=== PATIENT | female | born 1935 | race Caucasian/White ===

== ENCOUNTER 2017-07-02 16:17 | Emergency (ER) | payer MEDICARE, OTHER ==
--- NOTE | 2017-07-02 16:55 | ER Document Report ---
ED Medical Screen (RME) - General Chief Complaint: Weakness Stated Complaint: WEAKNESS Time Seen by Provider: 07/02/17 16:52 Mode of Arrival: Ambulatory Information source: Patient Notes: Patient states that she is felt confused intermittently since yesterday. However patient is alert and oriented 4 and answers all questions appropriately. Patient does take chronic pain medication and according to her sometimes accidentally takes more than she is supposed to. Patient denies any abdominal pain. No nausea vomiting or diarrhea. No cough cold or congestion. TRAVEL OUTSIDE OF THE [place] IN LAST 30 DAYS: No - Related Data Allergies/Adverse Reactions: IVP dye Allergy (Uncoded 07/02/17 16:20) Past Medical History - Social History Chew tobacco use (# tins/day): No Frequency of alcohol use: None Drug Abuse: None - Past Medical History Cardiac Medical History: Reports: Hx Hypertension Endocrine Medical History: Reports: Hx Diabetes Mellitus Type 2 Renal/ Medical History: Denies: Hx Peritoneal Dialysis Musculoskeltal Medical History: Reports Hx Arthritis Past Surgical History: Reports: Hx Appendectomy, Hx Hysterectomy, Hx Orthopedic Surgery - Right knee replaced, spinal fusion, Hx Tonsillectomy - Immunizations Hx Diphtheria, Pertussis, Tetanus Vaccination: Yes Physical Exam - Vital signs Vitals: Temp Pulse Resp BP Pulse Ox 98.1 F 97 18 173/77 H 90 L 07/02/17 16:25 07/02/17 16:25 07/02/17 16:25 07/02/17 16:25 07/02/17 16:25 Course - Vital Signs Vital signs: Temp Pulse Resp BP Pulse Ox 98.1 F 87 18 173/77 H 96 07/02/17 16:25 07/02/17 16:41 07/02/17 16:41 07/02/17 16:25 07/02/17 16:41
[2017-07-02 17:24] LABS: HEMATOCRIT 32.2 % (36.0-47.0); HEMOGLOBIN 10.5 g/dL (12.0-15.5); MEAN CORPUSCULAR HEMOGLOBIN 29.1 pg (27.0-33.4); MEAN CORPUSCULAR HGB CONC 32.7 g/dL (32.0-36.0); MEAN CORPUSCULAR VOLUME 89 fl (80-97); PLATELET COUNT 206 10^3/uL (150-450); RED CELL DISTRIBUTION WIDTH 16.5 % (11.5-14.0); WHITE BLOOD COUNT 16.1 10^3/uL (4.0-10.5)
[2017-07-02 17:36] LABS: APPEARANCE,URINE CLEAR; BILIRUBIN,URINE NEGATIVE (NEGATIVE); COLOR,URINE YELLOW; GLUCOSE, URINE NEGATIVE (NEGATIVE); KETONES,URINE NEGATIVE (NEGATIVE); LEUKOCYTE ESTERASE,URINE NEGATIVE (NEGATIVE); NITRITE,URINE NEGATIVE (NEGATIVE); PROTEIN,URINE 100 mg/dL (NEGATIVE); URINE SPECIFIC GRAVITY 1.011; UROBILINOGEN,URINE NEGATIVE mg/dL (<2.0)
[2017-07-02 17:41] LABS: ALANINE AMINOTRANSFERASE 20 U/L (9-52); ALBUMIN 3.9 g/dL (3.5-5.0); ALKALINE PHOSPHATASE 66 U/L (38-126); ANION GAP 9 (5-19); ASPARTATE AMINO TRANSFERASE 22 U/L (14-36); BILIRUBIN,DIRECT 0.2 mg/dL (0.0-0.4); BILIRUBIN,TOTAL 0.6 mg/dL (0.2-1.3); BLOOD UREA NITROGEN 64 mg/dL (7-20); CALCIUM 9.3 mg/dL (8.4-10.2); CARBON DIOXIDE 32 mmol/L (22-30); CHLORIDE 97 mmol/L (98-107); DIGOXIN 1.15 ng/mL (0.8-2.0); GLUCOSE 199 mg/dL (75-110); POTASSIUM 4.9 mmol/L (3.6-5.0); SODIUM 137.9 mmol/L (137-145); TOTAL PROTEIN 6.5 g/dL (6.3-8.2)
--- NOTE | 2017-07-02 17:41 | RADIOLOGY REPORT (SQ) ---
EXAM DESCRIPTION: CT HEAD WITHOUT COMPLETED DATE/TIME: 07/02/2017 5:27 pm REASON FOR STUDY: ams COMPARISON: None. TECHNIQUE: Axial images acquired through the brain without intravenous contrast. Images reviewed wi th bone, brain and subdural windows. Additional sagittal and coronal reconstructions were generated. Images stored on PACS. All CT scanners at this facility use dose modulation, iterative reconstruction, and/or weight based d osing when appropriate to reduce radiation dose to as low as reasonably achievable (ALARA). [facility]: Dose Right [facility]: CareDose [facility]: Dose Right [facility]: Teradose 4D [facility]: Someecards RADIATION DOSE: CT Rad equipment meets quality standard of care and radiation dose reduction techniq ues were employed. CTDIvol: 53.2 mGy. DLP: 1044 mGy-cm. mGy. LIMITATIONS: None. FINDINGS: VENTRICLES: Normal size and contour. CEREBRUM: No masses. No hemorrhage. No midline shift. No evidence for acute infarction. Few scatte red areas of low density in the white matter most likely chronic small vessel ischemic changes. CEREBELLUM: No masses. No hemorrhage. No alteration of density. No evidence for acute infarction. EXTRAAXIAL SPACES: No fluid collections. No masses. ORBITS AND GLOBE: No intra- or extraconal masses. Normal contour of globe without masses. CALVARIUM: No fracture. PARANASAL SINUSES: No fluid or mucosal thickening. SOFT TISSUES: No mass or hematoma. OTHER: No other significant finding. IMPRESSION: MILD CHRONIC MICROVASCULAR ISCHEMIA. NO ACUTE IMAGING FINDINGS IN THE BRAIN. EVIDENCE OF ACUTE STROKE: NO. COMMENT: Quality ID # [id number]: Final reports with documentation of one or more dose reduction techniques (e.g., Automated exposure control, adjustment of the mA and/or kV according to patient size, use of iterative reconstruction technique) TECHNICAL DOCUMENTATION: JOB ID: [id number] [employer]- All Rights Reserved Reading location - IP/workstation name: [email or web address]
[2017-07-02 17:48] LABS: ABSOLUTE LYMPHOCYTES# (MANUAL) 0.8 10^3/uL (0.5-4.7); ABSOLUTE MONOCYTES # (MANUAL) 1.4 10^3/uL (0.1-1.4); ABSOLUTE NEUTROPHILS# (MANUAL) 13.7 10^3/uL (1.7-8.2); ANISOCYTOSIS 1+; BASOPHILS % (MANUAL) 0 % (0-2); EOSINOPHILS % (MANUAL) 1 % (0-6); LYMPHOCYTES % (MANUAL) 5 % (13-45); MONOCYTES % (MANUAL) 9 % (3-13); PLATELET COMMENT ADEQUATE; POIKILOCYTOSIS SLIGHT; SEGMENTED NEUTROPHILS % (MAN) 85 % (42-78); TOTAL CELLS COUNTED 100; TOXIC GRANULATION SLIGHT
--- NOTE | 2017-07-02 18:29 | ER Document Report ---
ED General - General Chief Complaint: Weakness Stated Complaint: WEAKNESS Time Seen by Provider: 07/02/17 16:52 Mode of Arrival: Ambulatory TRAVEL OUTSIDE OF THE [place] IN LAST 30 DAYS: No - HPI Patient complains to provider of: Confusion yesterday Onset: Yesterday Onset/Duration: Gradual, Gone Quality of pain: No pain Associated symptoms: Nausea Exacerbated by: Denies Relieved by: Denies Similar symptoms previously: Yes Recently seen / treated by doctor: No Notes: Patient is an 81-year-old female presenting to the emergency room with for complaints of confusion that occurred yesterday, started sometime in the morning and resolved around 10 PM at night, patient has a history of similar symptoms when she accidentally took an extra dose of her pain medication in the past, patient and are unsure whether this may have happened yesterday as well, she denies any symptoms at present except for mild nausea, patient denies any pain, no fever, no vomiting or diarrhea, no dysuria or hematuria, no history of any recent injury or illness, patient and deny any evidence of slurred speech or weakness on one side of the body or other, there was no facial droop at any time either - Related Data Allergies/Adverse Reactions: IVP dye Allergy (Uncoded 07/02/17 16:20) Past Medical History - General Information source: Patient - Social History Smoking Status: Former Smoker Chew tobacco use (# tins/day): No Frequency of alcohol use: None Drug Abuse: None Family History: None Patient has suicidal ideation: No Patient has homicidal ideation: No - Past Medical History Cardiac Medical History: Reports: Hx Hypertension Endocrine Medical History: Reports: Hx Diabetes Mellitus Type 2 Renal/ Medical History: Denies: Hx Peritoneal Dialysis Musculoskeltal Medical History: Reports Hx Arthritis Past Surgical History: Reports: Hx Appendectomy, Hx Hysterectomy, Hx Orthopedic Surgery - Right knee replaced, spinal fusion, Hx Tonsillectomy - Immunizations Hx Diphtheria, Pertussis, Tetanus Vaccination: Yes Review of Systems - Review of Systems Constitutional: See HPI EENT: No symptoms reported Cardiovascular: No symptoms reported Respiratory: No symptoms reported Gastrointestinal: No symptoms reported Genitourinary: No symptoms reported Female Genitourinary: No symptoms reported Musculoskeletal: No symptoms reported Skin: No symptoms reported Hematologic/Lymphatic: No symptoms reported Neurological/Psychological: Confusion -: Yes All other systems reviewed and negative Physical Exam - Vital signs Vitals: Temp Pulse Resp BP Pulse Ox 98.1 F 97 18 173/77 H 90 L 07/02/17 16:25 07/02/17 16:25 07/02/17 16:25 07/02/17 16:25 07/02/17 16:25 Interpretation: Normal - General General appearance: Appears well, Alert - HEENT Head: Normocephalic, Atraumatic Eyes: Normal Pupils: PERRL - Respiratory Respiratory status: No respiratory distress Chest status: Nontender Breath sounds: Normal Chest palpation: Normal - Cardiovascular Rhythm: Regular Heart sounds: Normal auscultation Murmur: No - Abdominal Inspection: Normal Distension: No distension Bowel sounds: Normal Tenderness: Nontender Organomegaly: No organomegaly - Back Back: Normal, Nontender - Extremities General upper extremity: Normal inspection, Nontender, Normal color, Normal ROM , Normal temperature General lower extremity: Normal inspection, Nontender, Normal color, Normal ROM , Normal temperature, Normal weight bearing. No: Ronn's sign - Neurological Neuro grossly intact: Yes Cognition: Normal Orientation: AAOx4 Najma Coma Scale Eye Opening: Spontaneous Najma Coma Scale Verbal: Oriented [place] Coma Scale Motor: Obeys Commands Najma Coma Scale Total: 15 Speech: Normal Motor strength normal: LUE, RUE, LLE, RLE Sensory: Normal - Psychological Associated symptoms: Normal affect, Normal mood - Skin Skin Temperature: Warm Skin Moisture: Dry Skin Color: Normal Course - Re-evaluation Re-evalutation: 07/02/17 19:06 Patient with confusion that occurred yesterday and resolved around 10 PM last night, no evidence of any TIA or CVA, labs are relatively unremarkable except for mild leukocytosis without signs of an infection, patient was advised to resume her medications this evening, follow-up with primary care or return if symptoms worsen, patient and spouse at bedside acknowledge understanding and agreement with this plan - Vital Signs Vital signs: Temp Pulse Resp BP Pulse Ox 98.7 F 88 16 136/88 H 96 07/02/17 19:02 07/02/17 19:02 07/02/17 19:02 07/02/17 19:02 07/02/17 19:02 - Laboratory Result Diagrams: 07/02/17 17:06 07/02/17 17:06 Laboratory results interpreted by me: 04/07/02/17 07/02/17 17:06 17:06 17:06 WBC 16.1 H RBC 3.60 L Hgb 10.5 L Hct 32.2 L RDW 16.5 H Seg Neuts % (Manual) 85 H Lymphocytes % (Manual) 5 L Abs Neuts (Manual) 13.7 H Chloride 97 L Carbon Dioxide 32 H BUN 64 H Creatinine 1.87 H Est GFR ( Amer) 31 L Est GFR (Non-Af Amer) 26 L Glucose 199 H Urine Protein 100 H Urine Blood SMALL H - Diagnostic Test Radiology reviewed: Image reviewed, Reports reviewed Discharge - Discharge Clinical Impression: Confusion Medication adverse effect Qualifiers: Encounter type: initial encounter Qualified Code(s): T88.7XXA - Unspecified adverse effect of drug or medicament, initial encounter Condition: Stable Disposition: HOME, SELF-CARE Instructions: Medication Side Effects ([facility]), Overdose / Ingestion ([facility]) Additional Instructions: Follow up with your primary care provider in one to 2 days. Return to the emergency room immediately if symptoms worsen or any additional concerns. Resume your regular medications this evening. Start taking your medications as usual in the morning.
[2017-07-02 19:03] VITALS: BP 136/88
== END 2017-07-02 19:02 | disposition home or self-care (01) ==
LOC: ER 16:17
DX: R41.0 Disorientation, unspecified (principal); R53.1 Weakness; T88.7XXA Unspecified adverse effect of drug or medicament, initial encounter; X58.XXXA Exposure to other specified factors, initial encounter; R11.0 Nausea; I10 Essential (primary) hypertension; E11.9 Type 2 diabetes mellitus without complications; Z90.710 Acquired absence of both cervix and uterus; Z98.1 Arthrodesis status
CPT/HCPCS: 36415; 70450; 80053; 80162; 81001; 85025; 99285

== ENCOUNTER 2017-07-04 00:04 | Emergency (ER) | payer MEDICARE, OTHER ==
[2017-07-04] MEDS ORDERED: NORMAL SALINE 1000 ML 1,000 ML IV ONE (01:14)
[2017-07-04] MEDS ORDERED: METOCLOPRAMIDE HCL INJ/PF 10 MG/2 ML SDV IV ONE (01:40)
--- NOTE | 2017-07-04 01:42 | ER Document Report ---
ED General - General Chief Complaint: Abdominal Pain Stated Complaint: ABDOMINAL PAIN Time Seen by Provider: 07/04/17 01:12 Notes: Patient is an 81-year-old female with medical history as recorded who presents with 24 hours of nausea, vomiting and diarrhea. She also notes associated abdominal cramping as a dull, intermittent, generalized cramping pain. Nothing improves or worsens her symptoms. She states that she was worried that she was becoming dehydrated as she had not been able to tolerate oral intake for the past several hours. She denies any history of similar symptoms in the past. She has not seen a primary doctor regarding these concerns. She denies any fever, cough, sputum production, weakness, numbness or altered mental status. She was seen in the emergency room and several days ago for possible medication reaction with associated confusion but notes that she has not had a recurrence of symptoms since that time. TRAVEL OUTSIDE OF THE [place] IN LAST 30 DAYS: No - Related Data Allergies/Adverse Reactions: IVP dye Allergy (Uncoded 07/02/17 16:20) Past Medical History - General Information source: Patient, Relative - Social History Smoking Status: Never Smoker Frequency of alcohol use: None Drug Abuse: None Lives with: Spouse/Significant other Family History: Reviewed & Not Pertinent - Past Medical History Cardiac Medical History: Reports: Hx Hypertension Endocrine Medical History: Reports: Hx Diabetes Mellitus Type 2 Renal/ Medical History: Denies: Hx Peritoneal Dialysis Musculoskeltal Medical History: Reports Hx Arthritis Past Surgical History: Reports: Hx Appendectomy, Hx Hysterectomy, Hx Orthopedic Surgery - Right knee replaced, spinal fusion, Hx Tonsillectomy - Immunizations Hx Diphtheria, Pertussis, Tetanus Vaccination: Yes Review of Systems - Review of Systems Notes: Constitutional: Negative for fever. HENT: Negative for sore throat. Eyes: Negative for visual changes. Cardiovascular: Negative for chest pain. Respiratory: Negative for shortness of breath. Gastrointestinal: Positive for abdominal cramping, vomiting and diarrhea Genitourinary: Negative for dysuria. Musculoskeletal: Negative for back pain. Skin: Negative for rash. Neurological: Negative for headaches, weakness or numbness. 10 point ROS negative except as marked above and in HPI. Physical Exam - Vital signs Vitals: Temp Pulse Resp BP Pulse Ox 98.6 F 91 16 147/77 H 92 07/04/17 00:14 07/04/17 00:14 07/04/17 00:14 07/04/17 00:14 07/04/17 00:14 Interpretation: Normal Notes: PHYSICAL EXAMINATION: GENERAL: Well-appearing, well-nourished and in no acute distress. HEAD: Atraumatic, normocephalic. EYES: Pupils equal round and reactive to light, extraocular movements intact, sclera anicteric, conjunctiva are normal. ENT: nares patent, oropharynx clear without exudates. Moderately dry mucous membranes. NECK: Normal range of motion, supple without lymphadenopathy LUNGS: Breath sounds clear to auscultation bilaterally and equal. No wheezes rales or rhonchi. HEART: Regular rate and rhythm without murmurs ABDOMEN: Soft, nontender, normoactive bowel sounds. No guarding, no rebound. No masses appreciated. EXTREMITIES: Normal range of motion, no pitting or edema. No cyanosis. NEUROLOGICAL: No focal neurological deficits. Moves all extremities spontaneously and on command. PSYCH: Normal mood, normal affect. SKIN: Warm, Dry, normal turgor, no rashes or lesions noted. Course - Re-evaluation Re-evalutation: 07/04/17 01:41 Patient presents with complaints of abdominal cramping, nausea, vomiting and diarrhea that has been present for the past 12-24 hours. She is otherwise very well in appearance on exam, vitals normal limits, no evidence of dehydration. She has no focal abdominal tenderness on examination. No rebound or guarding. Will obtain basic laboratories, I do not see an obvious indication for imaging at this time as I have a very low clinical suspicion for any life-threatening pathology including acute appendicitis, biliary colic, mesenteric ischemia, aortic pathology, or bowel obstruction 07/04/17 02:27 Laboratories show that the patient's leukocytosis is actually improving, renal function is likewise improving. Patient has not had any vomiting or diarrhea while here in the emergency department. Her daughter pulls me aside and actually tells me that the patient is "dramatic and kind of crazy". She states that she believes the patient may be seeking attention and that she has not witnessed any evidence of vomiting or diarrhea at home. Repeat abdominal exam without any focal tenderness, rebound or guarding. At this time will discharge with return precautions and follow-up recommendations. Verbal discharge instructions given a the bedside and opportunity for questions given. Medication warnings reviewed. Patient is in agreement with this plan and has verbalized understanding of return precautions and the need for primary care follow-up in the next 24-72 hours. - Vital Signs Vital signs: Temp Pulse Resp BP Pulse Ox 98.6 F 91 16 147/77 H 92 07/04/17 00:14 07/04/17 00:14 07/04/17 00:14 07/04/17 00:14 07/04/17 00:14 - Laboratory Result Diagrams: 07/04/17 01:30 07/04/17 01:30 Laboratory results interpreted by me: 07/04/17 07/04/17 01:30 01:30 WBC 15.9 H RBC 3.67 L Hgb 10.7 L Hct 32.2 L RDW 16.4 H Seg Neuts % (Manual) 93 H Lymphocytes % (Manual) 2 L Abs Neuts (Manual) 14.8 H Abs Lymphs (Manual) 0.3 L BUN 48 H Creatinine 1.51 H Est GFR ( Amer) 40 L Est GFR (Non-Af Amer) 33 L Glucose 171 H Direct Bilirubin 0.5 H Discharge - Discharge Clinical Impression: Vomiting and diarrhea, Abdominal cramping, Dehydration Condition: Good Disposition: HOME, SELF-CARE Additional Instructions: Your symptoms are likely due to a viral illness and should resolve in the next several days. You can take [id number] loperamide also known as Imodium as needed for diarrhea per box instructions. Continue to stay hydrated with plenty of solution such as Gatorade or Pedialyte. You are being prescribed Zofran to take as needed for nausea and vomiting. Please return if you develop severe abdominal pain, pass out, become unable to tolerate any oral fluids for 12 more hours, or any other symptoms that are concerning to you.
[2017-07-04 01:44] LABS: HEMATOCRIT 32.2 % (36.0-47.0); HEMOGLOBIN 10.7 g/dL (12.0-15.5); MEAN CORPUSCULAR HEMOGLOBIN 29.2 pg (27.0-33.4); MEAN CORPUSCULAR HGB CONC 33.2 g/dL (32.0-36.0); MEAN CORPUSCULAR VOLUME 88 fl (80-97); PLATELET COUNT 199 10^3/uL (150-450); RED BLOOD COUNT 3.67 10^6/uL (3.72-5.28); RED CELL DISTRIBUTION WIDTH 16.4 % (11.5-14.0); WHITE BLOOD COUNT 15.9 10^3/uL (4.0-10.5)
[2017-07-04 01:59] LABS: ALANINE AMINOTRANSFERASE 26 U/L (9-52); ALBUMIN 3.7 g/dL (3.5-5.0); ALKALINE PHOSPHATASE 70 U/L (38-126); ANION GAP 11 (5-19); ASPARTATE AMINO TRANSFERASE 19 U/L (14-36); BILIRUBIN,DIRECT 0.5 mg/dL (0.0-0.4); BILIRUBIN,TOTAL 1.1 mg/dL (0.2-1.3); BLOOD UREA NITROGEN 48 mg/dL (7-20); CARBON DIOXIDE 29 mmol/L (22-30); CHLORIDE 101 mmol/L (98-107); GLUCOSE 171 mg/dL (75-110); LIPASE 177.4 U/L (23-300); POTASSIUM 4.5 mmol/L (3.6-5.0); SODIUM 141.1 mmol/L (137-145); TOTAL PROTEIN 6.6 g/dL (6.3-8.2)
[2017-07-04 02:03] LABS: ABSOLUTE LYMPHOCYTES# (MANUAL) 0.3 10^3/uL (0.5-4.7); ABSOLUTE MONOCYTES # (MANUAL) 0.6 10^3/uL (0.1-1.4); ABSOLUTE NEUTROPHILS# (MANUAL) 14.8 10^3/uL (1.7-8.2); BASOPHILS % (MANUAL) 0 % (0-2); EOSINOPHILS % (MANUAL) 1 % (0-6); LYMPHOCYTES % (MANUAL) 2 % (13-45); MONOCYTES % (MANUAL) 4 % (3-13); SEGMENTED NEUTROPHILS % (MAN) 93 % (42-78); TOTAL CELLS COUNTED 100
[2017-07-04 02:08] LABS: ANISOCYTOSIS 1+; OVALOCYTES 1+; PLATELET COMMENT ADEQUATE; PLATELET LARGE PRESENT; TEAR DROP CELLS SLIGHT; TOXIC GRANULATION 1+
[2017-07-04] MEDS ORDERED: ONDANSETRON ODT 4 MG TAB (6 TAB/ER DISP) PO PRN (02:27)
[2017-07-04 04:04] VITALS: BP 130/75
== END 2017-07-04 04:03 | disposition home or self-care (01) ==
LOC: ER 00:04
DX: R11.2 Nausea with vomiting, unspecified (principal); R19.7 Diarrhea, unspecified; E86.0 Dehydration; R10.84 Generalized abdominal pain; I10 Essential (primary) hypertension; E11.9 Type 2 diabetes mellitus without complications
CPT/HCPCS: 99284; 96361; 96374; 36415; 83690; 85025; 80053; J2765; J7030; A9270

== ENCOUNTER 2017-07-15 13:00 | Emergency (ER) | payer MEDICARE, OTHER ==
--- NOTE | 2017-07-15 14:07 | ER Document Report ---
ED Medical Screen (RME) - General Chief Complaint: Abdominal Pain Stated Complaint: STOMACH PAIN Time Seen by Provider: 07/15/17 14:04 Notes: Patient says that she is been having stomach pains for the past 3 days. Pains are located in the lower central portion of the abdomen. Has been nauseated and has had some dry heaves this morning but has not had any actual emesis. She had some diarrhea yesterday, less today. She suffers from constipation. Patient has a history of surgery removing colon cancer. Never had to have chemo or radiation treatment. Has not been sick recently. Denies fever. Patient has some shortness of breath, and it is worse in recent days. History of COPD. Does not smoke. TRAVEL OUTSIDE OF THE [place] IN LAST 30 DAYS: No - Related Data Allergies/Adverse Reactions: IVP dye Allergy (Uncoded 07/15/17 13:02) Past Medical History - Social History Chew tobacco use (# tins/day): No Frequency of alcohol use: None Drug Abuse: None - Past Medical History Cardiac Medical History: Reports: Hx Hypertension Endocrine Medical History: Reports: Hx Diabetes Mellitus Type 2 Renal/ Medical History: Denies: Hx Peritoneal Dialysis Musculoskeltal Medical History: Reports Hx Arthritis - in pain management Past Surgical History: Reports: Hx Appendectomy, Hx Bowel Surgery - umbilical hernia, Hx Hysterectomy, Hx Orthopedic Surgery - Right knee replaced, spinal fusion, Hx Tonsillectomy - Immunizations Hx Diphtheria, Pertussis, Tetanus Vaccination: Yes Physical Exam - Vital signs Vitals: Temp Pulse Resp BP Pulse Ox 97.6 F 75 18 175/71 H 96 07/15/17 13:07 07/15/17 13:07 07/15/17 13:07 07/15/17 13:07 07/15/17 13:07 Course - Vital Signs Vital signs: Temp Pulse Resp BP Pulse Ox 97.6 F 75 18 175/71 H 96 07/15/17 13:07 07/15/17 13:07 07/15/17 13:07 07/15/17 13:07 07/15/17 13:07 Doctor's Discharge - Discharge Referrals: YONATHAN CHAVEZ PA-C [Primary Care Provider] - Follow up as needed
[2017-07-15] MEDS ORDERED: ONDANSETRON HCL INJ/PF 4 MG/2 ML SDV IV ONE (15:03)
[2017-07-15] MEDS ORDERED: MORPHINE SULFATE 10 MG/ML INJ IV ONE (15:03)
[2017-07-15] MEDS ORDERED: IPRATROPIUM/ALBUTEROL 0.5-2.5 MG/3 ML AMPUL NEB ONE (15:04)
--- NOTE | 2017-07-15 15:15 | ER Document Report ---
ED General - General Chief Complaint: Abdominal Pain Stated Complaint: STOMACH PAIN Time Seen by Provider: 07/15/17 14:04 Mode of Arrival: Ambulatory Information source: Patient Notes: 81-year-old female with a history of colon cancer, constipation, diabetes, hypertension, COPD, renal insufficiency presents with complaint of abdominal pain that started 3 days prior to arrival. Patient states pain is constant, burning and located diffusely. She has had prior similar symptoms. she has had associated nausea without vomiting. Patient has also been experiencing intermittent episodes of diarrhea that she states is normal in color. Patient is currently in pain management for chronic back pain and takes morphine daily. Patient's last colonoscopy was less than a year ago and patient and report that they were told "everything looked good." Patient denies any sick contacts, recent antibiotic use, recent hospitalizations. She denies any black or bloody stools. She does admit to urinary frequency, burning with urination. She denies any vaginal discharge. She has surgical history of colectomy, hysterectomy, appendectomy. She states she is passing gas. TRAVEL OUTSIDE OF THE [place] IN LAST 30 DAYS: No - HPI Onset: Other - 3 days prior to arrival Onset/Duration: Gradual, Persistent Quality of pain: Burning Severity: Mild Associated symptoms: Diarrhea, Nausea. denies: Chest pain, Fever, Vomiting Exacerbated by: Food Relieved by: Denies Similar symptoms previously: No Recently seen / treated by doctor: No - Related Data Allergies/Adverse Reactions: IVP dye Allergy (Uncoded 07/15/17 13:02) Past Medical History - General Information source: Patient - Social History Smoking Status: Former Smoker Chew tobacco use (# tins/day): No Frequency of alcohol use: None Drug Abuse: None Lives with: Spouse/Significant other Family History: Reviewed & Not Pertinent Patient has suicidal ideation: No Patient has homicidal ideation: No - Past Medical History Cardiac Medical History: Reports: Hx Atrial Fibrillation, Hx Hypertension Pulmonary Medical History: Reports: Hx COPD Endocrine Medical History: Reports: Hx Diabetes Mellitus Type 2, Other - Renal insufficiency Renal/ Medical History: Denies: Hx Peritoneal Dialysis Malignancy Medical History: Reports: Hx Colorectal Cancer Musculoskeltal Medical History: Reports Hx Arthritis - in pain management Past Surgical History: Reports: Hx Appendectomy, Hx Bowel Surgery - umbilical hernia, Hx Hysterectomy, Hx Orthopedic Surgery - Right knee replaced, spinal fusion, Hx Tonsillectomy - Immunizations Hx Diphtheria, Pertussis, Tetanus Vaccination: Yes Review of Systems - Review of Systems Notes: Patient denies fever, chills, vomiting, headache, ear pain, sore throat, cough, chest pain, shortness of breath, back pain, hematuria, rash, SI/HI. Admits to abdominal pain, nausea, diarrhea, dysuria. Physical Exam - Vital signs Vitals: Temp Pulse Resp BP Pulse Ox 97.6 F 75 18 175/71 H 96 07/15/17 13:07 07/15/17 13:07 07/15/17 13:07 07/15/17 13:07 07/15/17 13:07 Interpretation: Normal, Hypertensive. No: Tachycardic, Hypoxic, Febrile Notes: PHYSICAL EXAMINATION: GENERAL: Well-appearing, well-nourished and in no acute distress. HEAD: Atraumatic, normocephalic. EYES: Pupils equal round and reactive to light, extraocular movements intact, conjunctiva are normal. ENT: Nares patent, oropharynx clear without exudates. Moist mucous membranes. NECK: Normal range of motion, supple without lymphadenopathy LUNGS: Breath sounds clear to auscultation bilaterally and equal. No wheezes rales or rhonchi. HEART: Regular rate and rhythm without murmurs ABDOMEN: Diffuse tenderness with palpation, no guarding, no rebound. No masses appreciated. Female : deferred Musculoskeletal: Normal range of motion, no pitting or edema. No cyanosis. NEUROLOGICAL: Cranial nerves grossly intact. Normal speech, normal gait. Normal sensory, motor exams PSYCH: Normal mood, normal affect. SKIN: Warm, Dry, normal turgor, no rashes or lesions noted. - Notes Notes: PHYSICAL EXAMINATION: GENERAL: Well-appearing, well-nourished and in no acute distress. HEAD: Atraumatic, normocephalic. EYES: Pupils equal round and reactive to light, extraocular movements intact, conjunctiva are normal. ENT: Nares patent, oropharynx clear without exudates. Moist mucous membranes. NECK: Normal range of motion, supple without lymphadenopathy LUNGS: Breath sounds clear to auscultation bilaterally and equal. No wheezes rales or rhonchi. HEART: Regular rate and rhythm without murmurs ABDOMEN: Soft, nontender, nondistended abdomen. No guarding, no rebound. No masses appreciated. Female : deferred Musculoskeletal: Normal range of motion, no pitting or edema. No cyanosis. NEUROLOGICAL: Cranial nerves grossly intact. Normal speech, normal gait. Normal sensory, motor exams PSYCH: Normal mood, normal affect. SKIN: Warm, Dry, normal turgor, no rashes or lesions noted. Course - Re-evaluation Re-evalutation: 07/17/17 00:09 Laboratory 07/15/17 07/15/17 07/15/17 14:52 14:52 14:52 WBC 14.0 H RBC 3.38 L Hgb 9.7 L Hct 29.5 L MCV 87 MCH 28.6 MCHC 32.7 RDW 15.3 H Plt Count 286 Seg Neutrophils % 86.6 H Lymphocytes % 6.2 L Monocytes % 5.5 Eosinophils % 1.2 Basophils % 0.5 Absolute Neutrophils 12.1 H Absolute Lymphocytes 0.9 Absolute Monocytes 0.8 Absolute Eosinophils 0.2 Absolute Basophils 0.1 Sodium 142.4 Potassium 4.7 Chloride 99 Carbon Dioxide 36 H Anion Gap 7 BUN 27 H Creatinine 1.37 H Est GFR ( Amer) 45 L Est GFR (Non-Af Amer) 37 L Glucose 138 H Calcium 9.5 Total Bilirubin 0.6 Direct Bilirubin 0.3 Neonat Total Bilirubin Not Reportable Neonat Direct Bilirubin Not Reportable Neonat Indirect Bili Not Reportable AST 13 L ALT 25 Alkaline Phosphatase 78 CK-MB (CK-2) 0.80 Troponin I 0.026 NT-Pro-B Natriuret Pep 4590 H Total Protein 6.8 Albumin 3.6 Lipase 94.3 Urine Color Urine Appearance Urine pH Ur Specific [place] Urine Protein Urine Glucose (UA) Urine Ketones Urine Blood Urine Nitrite Urine Bilirubin Urine Urobilinogen Ur Leukocyte Esterase Urine WBC (Auto) Urine RBC (Auto) Urine Bacteria (Auto) Squamous Epi Cells Auto Urine Mucus (Auto) Urine Ascorbic Acid 07/15/17 15:52 WBC RBC Hgb Hct MCV MCH MCHC RDW Plt Count Seg Neutrophils % Lymphocytes % Monocytes % Eosinophils % Basophils % Absolute Neutrophils Absolute Lymphocytes Absolute Monocytes Absolute Eosinophils Absolute Basophils Sodium Potassium Chloride Carbon Dioxide Anion Gap BUN Creatinine Est GFR ( Amer) Est GFR (Non-Af Amer) Glucose Calcium Total Bilirubin Direct Bilirubin Neonat Total Bilirubin Neonat Direct Bilirubin Neonat Indirect Bili AST ALT Alkaline Phosphatase CK-MB (CK-2) Troponin I NT-Pro-B Natriuret Pep Total Protein Albumin Lipase Urine Color YELLOW Urine Appearance CLEAR Urine pH 7.0 Ur Specific [place] 1.012 Urine Protein >=500 H Urine Glucose (UA) NEGATIVE Urine Ketones NEGATIVE Urine Blood SMALL H Urine Nitrite NEGATIVE Urine Bilirubin NEGATIVE Urine Urobilinogen NEGATIVE Ur Leukocyte Esterase NEGATIVE Urine WBC (Auto) 1 Urine RBC (Auto) 2 Urine Bacteria (Auto) TRACE Squamous Epi Cells Auto 2 Urine Mucus (Auto) RARE Urine Ascorbic Acid NEGATIVE Chest X-Ray 07/15/17 14:04 IMPRESSION: No consolidation or pleural effusion. Abdomen/Pelvis CT 07/15/17 15:02 IMPRESSION: Mild wall thickening in the region of the pylorus and proximal duodenum with adjacent mesenteric inflammatory changes. Mild peripancreatic inflammatory changes adjacent to the pancreatic head- proximal duodenum. Small left pleural effusion. 07/17/17 00:11 81-year-old female with a history of colon cancer, constipation, diabetes, hypertension, COPD, renal insufficiency presents with complaint of abdominal pain that started 3 days prior to arrival. Patient states pain is constant, burning and located diffusely. She has had prior similar symptoms. she has had associated nausea without vomiting. Patient has also been experiencing intermittent episodes of diarrhea. Upon arrival vitals reviewed. Patient is afebrile, mildly hypertensive but with a normal heart rate and oxygen saturation. Abdominal exam is significant for diffuse mild tenderness. There is no guarding or rebound or evidence of peritonitis. CT with oral contrast was obtained and showed mild wall thickening around the pylorus, duodenum and mild arabella-pancreatic inflammation as well as a small left pleural effusion. Patient has a leukocytosis but when compared to recent blood work this has improved. Patient also has renal insufficiency but again this is improved when compared to blood work done 2 weeks prior to this visit. Patient has an elevated BNP of 4500. No previous BNPs to compare at this time. Patient was provided Zofran, morphine, Lasix during her ED course. Patient has been tolerating fluids, asking for food during throughout her visit. I did discuss findings with the patient, her and daughter. I spoke to the daughter over the mother's cell phone and she asked me to please encourage the patient had a healthier diet, stay away from soda. I have done this and recommend that the patient exercise bowel rest for the next few days taking in clear fluids only. Patient is very upset with this request. Although the patient does have discontinues her evidence of colitis I do not feel hospitalization is warranted at this time since she is able to eat and drink without difficulty. I believe if patient practices proper diet habits which we have discussed, chronic pain medication and participates and bowel rest for the next few days which we have also discussed that she will do okay. I have encouraged the patient to return to the emergency department if abdominal pain worsens, she is unable to tolerate fluids. Patient, and daughter are comfortable with discharge at this time. - Vital Signs Vital signs: Temp Pulse Resp BP Pulse Ox 98 F 76 18 160/85 H 93 07/15/17 20:02 07/15/17 20:02 07/15/17 20:02 07/15/17 20:02 07/15/17 20:02 - Laboratory Result Diagrams: 07/15/17 14:52 07/15/17 14:52 Laboratory results interpreted by me: 07/15/17 07/15/17 07/15/17 14:52 14:52 14:52 WBC 14.0 H RBC 3.38 L Hgb 9.7 L Hct 29.5 L RDW 15.3 H Seg Neutrophils % 86.6 H Lymphocytes % 6.2 L Absolute Neutrophils 12.1 H Carbon Dioxide 36 H BUN 27 H Creatinine 1.37 H Est GFR ( Amer) 45 L Est GFR (Non-Af Amer) 37 L Glucose 138 H AST 13 L NT-Pro-B Natriuret Pep 4590 H Urine Protein Urine Blood 07/15/17 15:52 WBC RBC Hgb Hct RDW Seg Neutrophils % Lymphocytes % Absolute Neutrophils Carbon Dioxide BUN Creatinine Est GFR ( Amer) Est GFR (Non-Af Amer) Glucose AST NT-Pro-B Natriuret Pep Urine Protein >=500 H Urine Blood SMALL H - Diagnostic Test Radiology reviewed: Image reviewed, Reports reviewed Discharge - Discharge Clinical Impression: Colitis, Nausea Abdominal pain Qualifiers: Abdominal location: generalized Qualified Code(s): R10.84 - Generalized abdominal pain Condition: Good Disposition: HOME, SELF-CARE Instructions: Abdominal Pain ([facility]), Colitis, Nonspecific ([facility]), Nausea or Vomiting, Nonspecific ([facility]) Additional Instructions: Your CAT scan today showed inflammation of your colon and small bowel. Your lab work shows improvement of your white count and kidney function. Please maintain a healthy diet and avoid fast food, greasy food, soda. Follow up with your physician tomorrow for further care or return to the ED IMMEDIATELY if symptoms worsen or new concerns occur. If you cannot afford to follow up with your primary care physician a list of low cost clinics have been provided at the end of your discharge papers as well. Prescriptions: Famotidine [Pepcid 40 mg Tablet] 40 mg PO DAILY #7 tablet Ondansetron [Zofran Odt 4 mg Tablet] 1 - 2 tab PO Q4H PRN #8 tab.rapdis PRN Reason: For Nausea/Vomiting Forms: Elevated Blood Pressure Referrals: YONATHAN CHAVEZ PA-C [Primary Care Provider] - 07/16/17
[2017-07-15 15:39] LABS: ALANINE AMINOTRANSFERASE 25 U/L (9-52); ALBUMIN 3.6 g/dL (3.5-5.0); ALKALINE PHOSPHATASE 78 U/L (38-126); ANION GAP 7 (5-19); ASPARTATE AMINO TRANSFERASE 13 U/L (14-36); BILIRUBIN,DIRECT 0.3 mg/dL (0.0-0.4); BILIRUBIN,TOTAL 0.6 mg/dL (0.2-1.3); BLOOD UREA NITROGEN 27 mg/dL (7-20); CALCIUM 9.5 mg/dL (8.4-10.2); CARBON DIOXIDE 36 mmol/L (22-30); CHLORIDE 99 mmol/L (98-107); GLUCOSE 138 mg/dL (75-110); LIPASE 94.3 U/L (23-300); POTASSIUM 4.7 mmol/L (3.6-5.0); SODIUM 142.4 mmol/L (137-145); TOTAL PROTEIN 6.8 g/dL (6.3-8.2)
[2017-07-15 15:40] LABS: ABSOLUTE BASOPHILS # (AUTO) 0.1 10^3/uL (0.0-0.2); ABSOLUTE EOSINOPHILS # (AUTO) 0.2 10^3/uL (0.0-0.6); ABSOLUTE LYMPHOCYTES (AUTO) 0.9 10^3/uL (0.5-4.7); ABSOLUTE MONOCYTES (AUTO) 0.8 10^3/uL (0.1-1.4); ABSOLUTE NEUT (AUTO) 12.1 10^3/uL (1.7-8.2); BASOPHILS % (AUTO) 0.5 % (0-2); EOSINOPHILS % (AUTO) 1.2 % (0-6); HEMATOCRIT 29.5 % (36.0-47.0); HEMOGLOBIN 9.7 g/dL (12.0-15.5); LYMPHOCYTES % (AUTO) 6.2 % (13-45); MEAN CORPUSCULAR HEMOGLOBIN 28.6 pg (27.0-33.4); MEAN CORPUSCULAR HGB CONC 32.7 g/dL (32.0-36.0); MEAN CORPUSCULAR VOLUME 87 fl (80-97); MONOCYTES % (AUTO) 5.5 % (3-13); PLATELET COUNT 286 10^3/uL (150-450); RED BLOOD COUNT 3.38 10^6/uL (3.72-5.28); RED CELL DISTRIBUTION WIDTH 15.3 % (11.5-14.0); SEGMENTED NEUTROPHILS % (AUTO) 86.6 % (42-78); TOTAL CELLS COUNTED % (AUTO) 100 %
[2017-07-15 16:00] LABS: CREATINE KINASE MB 0.8 ng/mL (<4.55); TROPONIN I 0.026 ng/mL
[2017-07-15 16:05] LABS: APPEARANCE,URINE CLEAR; BILIRUBIN,URINE NEGATIVE (NEGATIVE); COLOR,URINE YELLOW; GLUCOSE, URINE NEGATIVE (NEGATIVE); KETONES,URINE NEGATIVE (NEGATIVE); LEUKOCYTE ESTERASE,URINE NEGATIVE (NEGATIVE); NITRITE,URINE NEGATIVE (NEGATIVE); PROTEIN,URINE >=500 mg/dL (NEGATIVE); URINE SPECIFIC GRAVITY 1.012; UROBILINOGEN,URINE NEGATIVE mg/dL (<2.0)
[2017-07-15] MEDS ORDERED: FUROSEMIDE INJ/PF 40 MG/4 ML SDV IV ONE (16:25)
--- NOTE | 2017-07-15 17:59 | EKG REPORT ---
SEVERITY:- ABNORMAL ECG - ATRIAL FIBRILLATION LOW VOLTAGE IN FRONTAL LEADS NONSPECIFIC T ABNORMALITIES, LATERAL LEADS : Confirmed by: Melvin Ny MD 15-Jul-2017 17:59:10
--- NOTE | 2017-07-15 18:40 | RADIOLOGY REPORT (SQ) ---
EXAM DESCRIPTION: CHEST 2 VIEWS COMPLETED DATE/TIME: 07/15/2017 6:17 pm REASON FOR STUDY: Short of breath COMPARISON: None. EXAM PARAMETERS: NUMBER OF VIEWS: two views TECHNIQUE: Digital Frontal and Lateral radiographic views of the chest acquired. RADIATION DOSE: NA LIMITATIONS: none FINDINGS: LUNGS AND PLEURA: No consolidation, masses or pneumothorax. Mild chronic appearing inters titial changes. No pleural effusion. MEDIASTINUM AND HILAR STRUCTURES: Age-appropriate contour. HEART AND VASCULAR STRUCTURES: Heart upper limits of normal size. BONES: No acute findings. HARDWARE: None in the chest. OTHER: No other significant finding. IMPRESSION: No consolidation or pleural effusion. TECHNICAL DOCUMENTATION: JOB ID: [id number] 2010 [employer]- All Rights Reserved Reading location - IP/workstation name: [email or web address]
--- NOTE | 2017-07-15 18:54 | RADIOLOGY REPORT (SQ) ---
EXAM DESCRIPTION: CT ABD/PELVIS ORAL ONLY COMPLETED DATE/TIME: 07/15/2017 6:19 pm REASON FOR STUDY: diffuse abdominal pain h/o cancer COMPARISON: None. TECHNIQUE: CT scan of the abdomen and pelvis performed without intravenous or oral contrast. Images reviewed with lung, soft tissue, and bone windows. Reconstructed coronal and sagittal MPR images revi ewed. All images stored on PACS. All CT scanners at this facility use dose modulation, iterative reconstruction, and/or weight based d osing when appropriate to reduce radiation dose to as low as reasonably achievable (ALARA). [facility]: Dose Right [facility]: CareDose [facility]: Dose Right [facility]: Teradose 4D [facility]: [employer] RADIATION DOSE: CT Rad equipment meets quality standard of care and radiation dose reduction techniq ues were employed. CTDIvol: 13.4 mGy. DLP: 680 mGy-cm.mGy. LIMITATIONS: None. FINDINGS: LOWER CHEST: Small left pleural effusion. NON-CONTRASTED LIVER, SPLEEN, ADRENALS: Evaluation limited by lack of IV contrast. Small Calcificati ons in the left lobe. No identified significant masses. PANCREAS: Mild peripancreatic inflammatory changes adjacent to the pancreatic head- proximal duodenum . GALLBLADDER: No identified stones by CT criteria. No inflammatory changes to suggest cholecystitis. RIGHT KIDNEY AND URETER: Multiple cysts. Assessment limited by lack of IV contrast. No significant calcifications. No hydronephrosis or hydroureter. LEFT KIDNEY AND URETER: Multiple cysts. Assessment limited by lack of IV contrast. No significant c alcifications. No hydronephrosis or hydroureter. AORTA AND RETROPERITONEUM: No aneurysm. No retroperitoneal masses or adenopathy. BOWEL AND PERITONEAL CAVITY: Mild wall thickening in the region of the pylorus and proximal duodenum with adjacent mesenteric inflammatory changes. Colonic diverticulosis. APPENDIX: Not visualized. PELVIS, BLADDER, AND ABDOMINAL WALL:Prior hysterectomy. No free fluid. Bladder normal. BONES: No acute findings. OTHER: No other significant finding. IMPRESSION: Mild wall thickening in the region of the pylorus and proximal duodenum with adjacent me senteric inflammatory changes. Mild peripancreatic inflammatory changes adjacent to the pancreatic h ead- proximal duodenum. Small left pleural effusion. COMMENT: Quality ID # [id number]: Final reports with documentation of one or more dose reduction techniques (e.g., Automated exposure control, adjustment of the mA and/or kV according to patient size, use of iterative reconstruction technique) TECHNICAL DOCUMENTATION: JOB ID: [id number] 2010 [employer]- All Rights Reserved Reading location - IP/workstation name: [email or web address]
[2017-07-15] MEDS ORDERED: KETOROLAC TROMETHAMINE INJ/PF 30 MG/1 ML SDV IV ONE (19:22)
[2017-07-15] MEDS ORDERED: FAMOTIDINE INJ/PF 20 MG/2 ML SDV IV ONE (19:22)
[2017-07-15] MEDS ORDERED: LIDOCAINE 2% VISCOUS SOLN 20 ML UDCUP PO ONE (19:23)
[2017-07-15] MEDS ORDERED: MAG HYDROX/AL HYDROX/SIMETH SUSP 30 ML UDCUP PO ONE (19:23)
[2017-07-15] MEDS ORDERED: METOCLOPRAMIDE HCL ORAL SOLN 10 MG/10 ML UDCUP PO ONE (19:23)
[2017-07-15] MEDS ORDERED: METOCLOPRAMIDE HCL INJ/PF 10 MG/2 ML SDV IV ONE (19:28)
[2017-07-15 20:04] VITALS: BP 160/85
== END 2017-07-15 20:02 | disposition home or self-care (01) ==
LOC: ER 13:00
DX: K52.9 Noninfective gastroenteritis and colitis, unspecified (principal); R10.84 Generalized abdominal pain; R11.0 Nausea; E11.9 Type 2 diabetes mellitus without complications; I10 Essential (primary) hypertension; J44.9 Chronic obstructive pulmonary disease, unspecified; Z85.038 Personal history of other malignant neoplasm of large intestine; Z87.891 Personal history of nicotine dependence
CPT/HCPCS: 93005; 94640; 99285; 96374; 96375; 36415; 82553; 83690; 85025; 80053; 81001; 84484; 83880; 71046; 74176; 93010; J1940; J3490; J1885; A9270 ×2; J2270; J2405; S0028; J7620

== ENCOUNTER 2017-07-25 15:11 | Emergency (ER) | payer MEDICARE, OTHER ==
[2017-07-25] MEDS ORDERED: ASPIRIN 81 MG TABLET, CHEWABLE PO ONE (15:41)
--- NOTE | 2017-07-25 15:43 | ER Document Report ---
ED Medical Screen (RME) - General Chief Complaint: Dizziness Stated Complaint: DIZZINESS Time Seen by Provider: 07/25/17 15:41 TRAVEL OUTSIDE OF THE [place] IN LAST 30 DAYS: No - HPI Notes: 07/25/17 15:42 Dizziness ongoing for a week worse with movement on meclizine - Related Data Allergies/Adverse Reactions: IVP dye Allergy (Uncoded 07/25/17 15:39) Past Medical History - Social History Chew tobacco use (# tins/day): No Frequency of alcohol use: None Drug Abuse: None - Past Medical History Cardiac Medical History: Reports: Hx Atrial Fibrillation, Hx Hypertension Pulmonary Medical History: Reports: Hx COPD Endocrine Medical History: Reports: Hx Diabetes Mellitus Type 2 Renal/ Medical History: Denies: Hx Peritoneal Dialysis Malignancy Medical History: Reports: Hx Colorectal Cancer Musculoskeltal Medical History: Reports Hx Arthritis - in pain management Past Surgical History: Reports: Hx Appendectomy, Hx Bowel Surgery - umbilical hernia, Hx Hysterectomy, Hx Orthopedic Surgery - Right knee replaced, spinal fusion, Hx Tonsillectomy - Immunizations Hx Diphtheria, Pertussis, Tetanus Vaccination: Yes Review of Systems - Review of Systems Constitutional: Other - Dizziness Physical Exam - Vital signs Vitals: Temp Pulse Resp BP Pulse Ox 98.4 F 77 18 176/57 H 95 07/25/17 15:31 07/25/17 15:31 07/25/17 15:31 07/25/17 15:31 07/25/17 15:31 - General General appearance: Appears well In distress: None Course - Vital Signs Vital signs: Temp Pulse Resp BP Pulse Ox 98.4 F 77 18 176/57 H 95 07/25/17 15:31 07/25/17 15:31 07/25/17 15:31 07/25/17 15:31 07/25/17 15:31
[2017-07-25 16:20] LABS: ABSOLUTE BASOPHILS # (AUTO) 0.1 10^3/uL (0.0-0.2); ABSOLUTE EOSINOPHILS # (AUTO) 0.3 10^3/uL (0.0-0.6); ABSOLUTE LYMPHOCYTES (AUTO) 1.3 10^3/uL (0.5-4.7); ABSOLUTE MONOCYTES (AUTO) 0.9 10^3/uL (0.1-1.4); ABSOLUTE NEUT (AUTO) 10.6 10^3/uL (1.7-8.2); BASOPHILS % (AUTO) 0.8 % (0-2); EOSINOPHILS % (AUTO) 2.1 % (0-6); HEMATOCRIT 33.5 % (36.0-47.0); LYMPHOCYTES % (AUTO) 10.1 % (13-45); MEAN CORPUSCULAR HEMOGLOBIN 28.6 pg (27.0-33.4); MEAN CORPUSCULAR HGB CONC 32.9 g/dL (32.0-36.0); MEAN CORPUSCULAR VOLUME 87 fl (80-97); PLATELET COUNT 300 10^3/uL (150-450); RED BLOOD COUNT 3.85 10^6/uL (3.72-5.28); RED CELL DISTRIBUTION WIDTH 16.2 % (11.5-14.0); TOTAL CELLS COUNTED % (AUTO) 100 %; WHITE BLOOD COUNT 13.3 10^3/uL (4.0-10.5)
--- NOTE | 2017-07-25 16:23 | RADIOLOGY REPORT (SQ) ---
EXAM DESCRIPTION: CT HEAD WITHOUT COMPLETED DATE/TIME: 07/25/2017 4:11 pm REASON FOR STUDY: dizzy COMPARISON: None. TECHNIQUE: Axial images acquired through the brain without intravenous contrast. Images reviewed wi th bone, brain and subdural windows. Images stored on PACS. All CT scanners at this facility use dose modulation, iterative reconstruction, and/or weight based d osing when appropriate to reduce radiation dose to as low as reasonably achievable (ALARA). [facility]: Dose Right [facility]: CareDose [facility]: Dose Right [facility]: Teradose 4D [facility]: [employer] RADIATION DOSE: CT Rad equipment meets quality standard of care and radiation dose reduction techniq ues were employed. CTDIvol: 53.2 mGy. DLP: 1070 mGy-cm.mGy. LIMITATIONS: None. FINDINGS: VENTRICLES: Prominent. CEREBRUM: No masses. No hemorrhage. No midline shift. Areas of low density in the white matter mos t likely due to chronic micro-vascular ischemic change. No evidence for acute infarction. CEREBELLUM: No masses. No hemorrhage. No alteration of density. No evidence for acute infarction. EXTRAAXIAL SPACES: Age-related involutional change. No fluid collections. No masses. ORBITS AND GLOBE: No intra- or extraconal masses. Normal contour of globe without masses. CALVARIUM: No fracture. PARANASAL SINUSES: No fluid or mucosal thickening. SOFT TISSUES: No mass or hematoma. OTHER: No other significant finding. IMPRESSION: CHRONIC CHANGES OF ATROPHY AND MICROVASCULAR ISCHEMIA. NO ACUTE PROCESS. EVIDENCE OF ACUTE STROKE: NO. TECHNICAL DOCUMENTATION: JOB ID: [id number] Quality ID # [id number]: Final reports with documentation of one or more dose reduction techniques (e.g., Au tomated exposure control, adjustment of the mA and/or kV according to patient size, use of iterative reconstruction technique) 2010 [employer]- All Rights Reserved Reading location - IP/workstation name: [email or web address]
[2017-07-25 16:39] LABS: ALANINE AMINOTRANSFERASE 20 U/L (9-52); ALBUMIN 3.9 g/dL (3.5-5.0); ALKALINE PHOSPHATASE 80 U/L (38-126); ANION GAP 11 (5-19); ASPARTATE AMINO TRANSFERASE 21 U/L (14-36); BILIRUBIN,DIRECT 0.5 mg/dL (0.0-0.4); BILIRUBIN,TOTAL 0.7 mg/dL (0.2-1.3); BLOOD UREA NITROGEN 26 mg/dL (7-20); CALCIUM 9.9 mg/dL (8.4-10.2); CARBON DIOXIDE 33 mmol/L (22-30); CHLORIDE 102 mmol/L (98-107); CREATINE KINASE 35 U/L (30-135); GLUCOSE 129 mg/dL (75-110); POTASSIUM 4.4 mmol/L (3.6-5.0); SODIUM 145.8 mmol/L (137-145); TOTAL PROTEIN 7.5 g/dL (6.3-8.2)
--- NOTE | 2017-07-25 16:43 | RADIOLOGY REPORT (SQ) ---
EXAM DESCRIPTION: CHEST 2 VIEWS COMPLETED DATE/TIME: 07/25/2017 4:23 pm REASON FOR STUDY: dizzy COMPARISON: 07/15/2017 EXAM PARAMETERS: NUMBER OF VIEWS: two views TECHNIQUE: Digital Frontal and Lateral radiographic views of the chest acquired. RADIATION DOSE: NA LIMITATIONS: none FINDINGS: LUNGS AND PLEURA: No opacities, masses or pneumothorax. No pleural effusion. MEDIASTINUM AND HILAR STRUCTURES: No masses or contour abnormalities. HEART AND VASCULAR STRUCTURES: The configuration of the heart mediastinal structures is unchanged. C ardiac silhouette appears mildly enlarged. BONES: No acute findings. HARDWARE: None in the chest. OTHER: No other significant finding. IMPRESSION: No significant interval changes compared to the previous study. No acute findings. Oth er findings as noted above TECHNICAL DOCUMENTATION: JOB ID: [id number] [employer]- All Rights Reserved Reading location - IP/workstation name: [email or web address]
[2017-07-25 16:50] LABS: CREATINE KINASE MB 0.8 ng/mL (<4.55)
[2017-07-25 16:57] LABS: TROPONIN I 0.037 ng/mL
[2017-07-25 17:50] LABS: APPEARANCE,URINE CLEAR; BILIRUBIN,URINE NEGATIVE (NEGATIVE); COLOR,URINE YELLOW; GLUCOSE, URINE NEGATIVE (NEGATIVE); KETONES,URINE NEGATIVE (NEGATIVE); LEUKOCYTE ESTERASE,URINE NEGATIVE (NEGATIVE); NITRITE,URINE NEGATIVE (NEGATIVE); PROTEIN,URINE 100 mg/dL (NEGATIVE); UROBILINOGEN,URINE NEGATIVE mg/dL (<2.0)
--- NOTE | 2017-07-25 18:22 | ER Document Report ---
ED Dizziness/Weakness <GOVINDHCARLIE - Last Filed: 07/25/17 20:46> - General Mode of Arrival: Ambulatory Information source: Patient TRAVEL OUTSIDE OF THE [place] IN LAST 30 DAYS: No <JUDE SANCHEZ - Last Filed: 07/25/17 21:52> - General Chief Complaint: Dizziness Stated Complaint: DIZZINESS Time Seen by Provider: 07/25/17 15:41 Notes: Patient is an 81 year old female with a history of colon cancer, diabetes, renal insufficiency, COPD, hypertension, A-fib,hyperlipidemia, and hyperthyroidism presents to the emergency department complaining of dizziness onset 1 week ago. Patient states her dizziness is exacerbated with rapid head movement and standing up. She further states she was prescribed Meclizine (25 mg 3x daily) from her PCP 2 days ago and is unsure if she took her dosage this morning due to being unable to swallow her pills. There is approximately 5 tablets missing from her Meclizine bottle. Patient was seen in this emergency department on 07/15/2017 and diagnosed with colitis subsequently being prescribed Pepcid and Zofran. Patient is also prescribed Eliquis, Digoxin and Metoprolol. (JUDE SANCHEZ) - Related Data Allergies/Adverse Reactions: IVP dye Allergy (Uncoded 07/25/17 15:39) Past Medical History - General Information source: Patient - Social History Smoking Status: Never Smoker Chew tobacco use (# tins/day): No Frequency of alcohol use: None Drug Abuse: None Family History: Reviewed & Not Pertinent Patient has suicidal ideation: No Patient has homicidal ideation: No - Past Medical History Cardiac Medical History: Reports: Hx Atrial Fibrillation, Hx Hypertension Pulmonary Medical History: Reports: Hx COPD Endocrine Medical History: Reports: Hx Diabetes Mellitus Type 2 Malignancy Medical History: Reports: Hx Colorectal Cancer Musculoskeltal Medical History: Reports Hx Arthritis - in pain management Past Surgical History: Reports: Hx Appendectomy, Hx Bowel Surgery - umbilical hernia, Hx Hysterectomy, Hx Orthopedic Surgery - Right knee replaced, spinal fusion of the L5-S1., Hx Tonsillectomy - Immunizations Hx Diphtheria, Pertussis, Tetanus Vaccination: Yes <JUDE SANCHEZ - Last Filed: 07/25/17 21:52> Review of Systems - Review of Systems Constitutional: No symptoms reported EENT: No symptoms reported Cardiovascular: See HPI, Dizziness Respiratory: No symptoms reported Gastrointestinal: No symptoms reported Genitourinary: No symptoms reported Female Genitourinary: No symptoms reported Musculoskeletal: No symptoms reported Skin: No symptoms reported Hematologic/Lymphatic: No symptoms reported Neurological/Psychological: No symptoms reported -: Yes All other systems reviewed and negative <JUDE SANCHEZ - Last Filed: 07/25/17 21:52> Physical Exam <GOVIND,CHARLIE - Last Filed: 07/25/17 20:46> <JUDE SANCHEZ - Last Filed: 07/25/17 21:52> - Vital signs Vitals: Temp Pulse Resp BP Pulse Ox 98.4 F 77 18 176/57 H 95 07/25/17 15:31 07/25/17 15:31 07/25/17 15:31 07/25/17 15:31 07/25/17 15:31 - Notes Notes: GENERAL: Alert, interacts well. No acute distress. HEAD: Normocephalic, atraumatic. EYES: Minimal lateral gaze nystagmus provoked with movement of head to the left and right. Pupils equal, round, and reactive to light. Extraocular movements intact. ENT: Oral mucosa moist, tongue midline. NECK: Full range of motion. Supple. Trachea midline. No bruits. LUNGS: Clear to auscultation bilaterally, no wheezes, rales, or rhonchi. No respiratory distress. HEART: Regular rate and rhythm. No murmurs, gallops, or rubs. ABDOMEN: Soft, non-tender. Obese. Non-distended. Bowel sounds present in all 4 quadrants. EXTREMITIES: BLE tender to palpaiton. Moves all 4 extremities spontaneously. No edema, strong radial and dorsalis pedis pulses. No cyanosis. NEUROLOGICAL: Alert and oriented x3. Normal speech. Patient appears demented. PSYCH: Normal affect, normal mood. SKIN: Warm, dry, normal turgor. No rashes or lesions noted. (LAURAJUDE) Course - Laboratory Result Diagrams: 07/25/17 15:50 07/25/17 15:50 - Diagnostic Test Radiology reviewed: Reports reviewed - MRI of the brain does not show evidence of stroke - EKG Interpretation by In EKG shows normal: [place], Intervals, QRS Complexes, ST-T Waves Rate: Normal - 80 Rhythm: A.Fib When compared to previous EKG there are: No significant change <CHARLIE FAUST - Last Filed: 07/25/17 20:46> - Laboratory Result Diagrams: 07/25/17 15:50 07/25/17 15:50 <JUDE SANCHEZ - Last Filed: 07/25/17 21:52> - Re-evaluation Re-evalutation: 07/25/17 20:47 After the MRI, I had the patient sit up and look about left right up and down rapidly, she states that the dizziness is actually much better now after receiving the 50 mg of meclizine. (CHARLIE FAUST) - Vital Signs Vital signs: Temp Pulse Resp BP Pulse Ox 98.0 F 88 16 153/77 H 96 07/25/17 21:01 07/25/17 21:01 07/25/17 21:01 07/25/17 21:01 07/25/17 21:01 - Laboratory Laboratory results interpreted by me: 07/25/17 07/25/17 07/25/17 15:15 15:50 15:50 WBC 13.3 H Hgb 11.0 L Hct 33.5 L RDW 16.2 H Seg Neutrophils % 80.0 H Lymphocytes % 10.1 L Absolute Neutrophils 10.6 H Sodium 145.8 H Carbon Dioxide 33 H BUN 26 H Creatinine 1.55 H Est GFR ( Amer) 39 L Est GFR (Non-Af Amer) 32 L Glucose 129 H Direct Bilirubin 0.5 H Urine Protein 100 H Urine Blood SMALL H Discharge <CHARLIE FAUST - Last Filed: 07/25/17 20:46> <JUDE SANCHEZ - Last Filed: 07/25/17 21:52> - Discharge Clinical Impression: Vertigo, Chronic atrial fibrillation High blood pressure Qualifiers: Hypertension type: essential hypertension Qualified Code(s): I10 - Essential ( primary) hypertension Condition: Stable Disposition: HOME, SELF-CARE Additional Instructions: Vertigo: You have experienced an episode of vertigo -- a whirling dizziness which may be accompanied by nausea and vomiting or staggering. Vertigo is often caused by an irritation of the inner ear, in which case it is called labyrinthitis. It can also be a symptom of a degenerating inner ear, nerve damage, or brain injury. Your physician has evaluated you to determine whether any further testing is necessary. Vertigo is often treated with dramamine or meclizine. These medications are helpful, but stronger medication may be needed if you are vomiting. Rest in bed. You should not drive or operate machinery until completely better. It may take one to three weeks for recovery. If there are new symptoms, such as decreased hearing or vision, severe headache, weakness or faintness, or confusion, call the physician. Increase your meclizine dose to 50 mg(2 tablets) every 8 hours for dizziness as needed. Take fall precautions as long as you are feeling dizzy. Be sure to take all of your regular medications as prescribed. Your blood pressure was quite high this afternoon. Be sure you are taking all of your blood pressure medication. Check your blood pressure throughout the day and if it remains elevated then follow-up with your primary care provider for medication adjustment. Follow-up with your doctor if your dizziness is not improving over the next few days. RETURN TO THE EMERGENCY ROOM IF ANY NEW OR WORSENING SYMPTOMS. Referrals: YONATHAN CHAVEZ PA-C [Primary Care Provider] - Follow up as needed Scribe Attestation: 07/25/17 19:28 I personally performed the services described in the documentation, reviewed and edited the documentation which was dictated to the scribe in my presence, and it accurately records my words and actions. (CHARLIE FAUST) Scribe Documentation - Scribe Written by Liyah:: Liyah Bronw, 07/25/2017 18:47 acting as scribe for :: Govind <JUDE SANCHEZ - Last Filed: 07/25/17 21:52>
--- NOTE | 2017-07-25 18:22 | EKG REPORT ---
SEVERITY:- ABNORMAL ECG - ATRIAL FIBRILLATION, V-RATE 63-104 : Confirmed by: Melvin Ny MD 25-Jul-2017 18:21:52
[2017-07-25] MEDS ORDERED: MECLIZINE HCL 25 MG TABLET PO ONE (18:24)
[2017-07-25] MEDS ORDERED: HYDRALAZINE HCL INJ/PF 20 MG/1 ML SDV IV ONE (18:24)
--- NOTE | 2017-07-25 20:19 | RADIOLOGY REPORT (SQ) ---
EXAM DESCRIPTION: MRI HEAD WITHOUT COMPLETED DATE/TIME: 07/25/2017 8:00 pm REASON FOR STUDY: vertigo, A-fib, not respond to meclizine COMPARISON: CT head 07/25/2017 TECHNIQUE: Multiplanar imaging includes non-contrasted T1, T2, FLAIR, and diffusion with ADC map seq uences. Images stored on PACS. LIMITATIONS: None. FINDINGS: ANATOMY: No anomalies. Normal vascular flow voids. Pituitary fossa normal. CSF SPACES: Normal in size and contour. No hemorrhage. CEREBRUM: Sulci and gyri normal in size and contour. Normal white matter signal on FLAIR imaging. No evidence of hemorrhage, mass, or extraaxial fluid collection. POSTERIOR FOSSA: No signal alteration. No hemorrhage. No edema, masses or mass effect. Internal sydnee tory canals, cerebello-pontine angles, mastoids normal. DIFFUSION IMAGING: Negative for acute or sub-acute infarction. ORBITS: No masses. Globes normal. PARANASAL SINUSES: No fluid levels. Mucosa normal. OTHER: No other significant finding. IMPRESSION: NORMAL MRI OF THE BRAIN WITHOUT INTRAVENOUS GADOLINIUM CONTRAST. EVIDENCE OF ACUTE STROKE: NO. TECHNICAL DOCUMENTATION: JOB ID: [id number] [employer]- All Rights Reserved Reading location - IP/workstation name: [email or web address]
[2017-07-25 21:33] VITALS: BP 153/77
== END 2017-07-25 21:05 | disposition home or self-care (01) ==
LOC: ER 15:11
DX: R42 Dizziness and giddiness (principal); I10 Essential (primary) hypertension; E11.9 Type 2 diabetes mellitus without complications; J44.9 Chronic obstructive pulmonary disease, unspecified; I48.2 Chronic atrial fibrillation; Z79.01 Long term (current) use of anticoagulants; Z79.899 Other long term (current) drug therapy; Z85.048 Personal history of other malignant neoplasm of rectum, rectosigmoid junction, and anus; Z91.041 Radiographic dye allergy status
CPT/HCPCS: 93005; 99285; 96374; 36415; 82553; 82550; 80162; 83690; 83735; 85025; 80053; 81001; 84484; 70551; 71046; 70450; 93010; A9270 ×2; J0360

== ENCOUNTER → 2018-02-11 | Outpatient (CLI) | payer MEDICARE, OTHER ==
[2018-02-11 14:35] LABS: ABSOLUTE BASOPHILS # (AUTO) 0.1 10^3/uL (0.0-0.2); ABSOLUTE EOSINOPHILS # (AUTO) 0.5 10^3/uL (0.0-0.6); ABSOLUTE LYMPHOCYTES (AUTO) 1.4 10^3/uL (0.5-4.7); ABSOLUTE NEUT (AUTO) 9.5 10^3/uL (1.7-8.2); BASOPHILS % (AUTO) 0.5 % (0-2); EOSINOPHILS % (AUTO) 4.2 % (0-6); HEMATOCRIT 29.4 % (36.0-47.0); HEMOGLOBIN 9.7 g/dL (12.0-15.5); MEAN CORPUSCULAR HEMOGLOBIN 29.9 pg (27.0-33.4); MEAN CORPUSCULAR HGB CONC 33.2 g/dL (32.0-36.0); MEAN CORPUSCULAR VOLUME 90 fl (80-97); MONOCYTES % (AUTO) 7.9 % (3-13); PLATELET COUNT 272 10^3/uL (150-450); RED BLOOD COUNT 3.26 10^6/uL (3.72-5.28); RED CELL DISTRIBUTION WIDTH 14.5 % (11.5-14.0); SEGMENTED NEUTROPHILS % (AUTO) 76.4 % (42-78); TOTAL CELLS COUNTED % (AUTO) 100 %; WHITE BLOOD COUNT 12.5 10^3/uL (4.0-10.5)
--- NOTE | 2018-02-11 14:37 | RADIOLOGY REPORT (SQ) ---
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 TECHNIQUE: Dynamic and static grayscale images acquired of the kidneys and bladder and recorded on P ACS. Additional selected color Doppler and spectral images recorded. LIMITATIONS: None. FINDINGS: RIGHT KIDNEY: Normal size, 10 cm. Multiple small cortical cysts. The largest measures 2. 4 cm in largest dimension. No solid masses. No calcifications. No hydronephrosis. There is cortic al thinning. LEFT KIDNEY: Normal size, 10.6 cm. Multiple cysts. The largest measures 2.6 cm in largest diameter . Cortical thinning is present. No hydronephrosis. No stones are seen. BLADDER: Urinary bladder is normal. Ureteral jets are not seen. OTHER FINDINGS: No other significant finding. IMPRESSION: Atrophic changes are present in both kidneys with several cortical cysts. The urinary b ladder is normal. TECHNICAL DOCUMENTATION: JOB ID: [id number] [employer]- All Rights Reserved Reading location - IP/workstation name: [email or web address]
[2018-02-11 14:54] LABS: ALANINE AMINOTRANSFERASE 14 U/L (9-52); ALBUMIN 3.7 g/dL (3.5-5.0); ALKALINE PHOSPHATASE 75 U/L (38-126); ANION GAP 12 (5-19); ASPARTATE AMINO TRANSFERASE 11 U/L (14-36); BILIRUBIN,DIRECT 0.2 mg/dL (0.0-0.4); BILIRUBIN,TOTAL 0.4 mg/dL (0.2-1.3); BLOOD UREA NITROGEN 40 mg/dL (7-20); CALCIUM 9.3 mg/dL (8.4-10.2); CARBON DIOXIDE 30 mmol/L (22-30); CHLORIDE 102 mmol/L (98-107); CREATINE KINASE 33 U/L (30-135); GLUCOSE 106 mg/dL (75-110); PHOSPHORUS 3.7 mg/dL (2.5-4.5); POTASSIUM 5.1 mmol/L (3.6-5.0); TOTAL PROTEIN 6.5 g/dL (6.3-8.2)
[2018-02-11 15:49] LABS: APPEARANCE,URINE CLEAR; BILIRUBIN,URINE NEGATIVE (NEGATIVE); COLOR,URINE YELLOW; GLUCOSE, URINE NEGATIVE (NEGATIVE); KETONES,URINE NEGATIVE (NEGATIVE); LEUKOCYTE ESTERASE,URINE NEGATIVE (NEGATIVE); NITRITE,URINE NEGATIVE (NEGATIVE); PROTEIN,URINE 100 mg/dL (NEGATIVE); URINE SPECIFIC GRAVITY 1.011; UROBILINOGEN,URINE NEGATIVE mg/dL (<2.0)
--- NOTE | 2018-02-11 16:11 | RADIOLOGY REPORT (SQ) ---
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 Images stored on PACS. LIMITATIONS: None. FINDINGS: RIGHT CAROTID CCA Velocities: Within normal limits. Right common carotid artery peak systolic velocity 0.87 m/sec. ICA Velocities Peak systolic 1.13 m/s. End diastolic 0.17 m/s. Proximal ICA/CCA peak systolic ratio 1.4. The proximal right ICA is very tortuous, with mixed calcific and noncalcific plaque. Velocities sugg est against flow significant stenosis. LEFT CAROTID CCA Velocities: Within normal limits. Left common carotid artery peak systolic velocity 1.1 m/sec ICA Velocities Peak systolic 1.3 m/s. End diastolic 0.3 m/s. Proximal ICA/CCA peak systolic ratio 1.2. The proximal left ICA is very tortuous, with mixed calcific and noncalcific plaque. Velocities sugge st against flow significant stenosis. VERTEBRAL ARTERIES: Antegrade flow. Normal waveforms. SUBCLAVIAN ARTERIES: Not evaluated OTHER: No other significant finding. IMPRESSION: NO HEMODYNAMICALLY SIGNIFICANT STENOSIS. COMMENT: Quality ID #[id number]: Velocity criteria are extrapolated from the diameter data as defined by t he Society of Radiologists in Ultrasound Consensus Conference. Radiology 2003: 229; 340-346. TECHNICAL DOCUMENTATION: JOB ID: [id number] [employer]- All Rights Reserved Reading location - IP/workstation name: [email or web address]
== END ==
LOC: RAD 14:15
PROVIDERS: ATTEND Internal Medicine Nephrology
DX: E11.22 Type 2 diabetes mellitus with diabetic chronic kidney disease (principal); I12.9 Hypertensive chronic kidney disease with stage 1 through stage 4 chronic kidney disease, or unspecified chronic kidney disease; N18.4 Chronic kidney disease, stage 4 (severe); I65.23 Occlusion and stenosis of bilateral carotid arteries
CPT/HCPCS: 36415; 76770; 80053; 81001; 82550; 83970; 84100; 85025; 93880

== ENCOUNTER 2018-04-03 13:09 | Emergency (ER) | payer MEDICARE, OTHER ==
[2018-04-03] MEDS ORDERED: IPRATROPIUM/ALBUTEROL 0.5-2.5 MG/3 ML AMPUL NEB ONE ×2 (13:58→15:22)
[2018-04-03] MEDS ORDERED: FAMOTIDINE INJ/PF 20 MG/2 ML SDV IV ONE (13:59)
--- NOTE | 2018-04-03 14:05 | ER Document Report ---
ED General - General Chief Complaint: Skin Problem Stated Complaint: POSSIBLE RASH Time Seen by Provider: 04/03/18 13:37 Mode of Arrival: Wheelchair Information source: Patient Notes: Patient is an 82-year-old female with history of COPD who presents with chief complaint of increased cough, increased sputum and wheezing. She also reports excessive itching due to rash that is on her arms and legs. States this is been going on for several months. Patient reports she is seen her primary care provider for the rash, he placed her on hydroxyzine which made her very sleepy. Patient has tried several different [id number] creams and ointments to the area without relief. Patient did take a short course of prednisone several weeks ago, she states this did not help her rash. Patient denies any fevers, nausea, vomiting or diarrhea. Patient does wear home O2 at 2 L at night. TRAVEL OUTSIDE OF THE [place] IN LAST 30 DAYS: No - Related Data Allergies/Adverse Reactions: IVP dye Allergy (Uncoded 07/25/17 15:39) Past Medical History - General Information source: Patient - Social History Smoking Status: Never Smoker Frequency of alcohol use: None Drug Abuse: None Family History: Reviewed & Not Pertinent Patient has suicidal ideation: No Patient has homicidal ideation: No - Past Medical History Cardiac Medical History: Reports: Hx Atrial Fibrillation, Hx Hypertension Pulmonary Medical History: Reports: Hx COPD Endocrine Medical History: Reports: Hx Diabetes Mellitus Type 2 Renal/ Medical History: Denies: Hx Peritoneal Dialysis Malignancy Medical History: Reports: Hx Colorectal Cancer Musculoskeletal Medical History: Reports Hx Arthritis - in pain management Past Surgical History: Reports: Hx Appendectomy, Hx Bowel Surgery - umbilical hernia, Hx Hysterectomy, Hx Orthopedic Surgery - Right knee replaced, spinal fusion of the L5-S1., Hx Tonsillectomy - Immunizations Hx Diphtheria, Pertussis, Tetanus Vaccination: Yes Review of Systems - Review of Systems Constitutional: No symptoms reported EENT: No symptoms reported Cardiovascular: No symptoms reported Respiratory: Cough, Sputum, Wheezing Gastrointestinal: No symptoms reported Genitourinary: No symptoms reported Female Genitourinary: No symptoms reported Musculoskeletal: No symptoms reported Skin: Rash Hematologic/Lymphatic: No symptoms reported Neurological/Psychological: No symptoms reported Physical Exam - Vital signs Vitals: Resp Pulse Ox 21 H 96 04/03/18 13:21 04/03/18 13:21 - Notes Notes: PHYSICAL EXAMINATION: GENERAL: Elderly female, well-nourished and in no acute distress. HEAD: Atraumatic, normocephalic. EYES: Pupils equal round and reactive to light, extraocular movements intact, conjunctiva are normal. ENT: Nares patent, oropharynx clear without exudates. Moist mucous membranes. NECK: Normal range of motion, supple without lymphadenopathy LUNGS: Breath sounds clear to auscultation bilaterally and equal. Moderate expiratory wheezing noted bilaterally. HEART: Regular rate and rhythm without murmurs ABDOMEN: Soft, nontender, nondistended abdomen. No guarding, no rebound. No masses appreciated. Female : deferred Musculoskeletal: Normal range of motion, no pitting or edema. No cyanosis. NEUROLOGICAL: Cranial nerves grossly intact. Normal speech, normal gait. Normal sensory, motor exams PSYCH: Normal mood, normal affect. SKIN: Warm, Dry, normal turgor, scattered erythematous rash to bilateral legs and bilateral upper extremities, multiple superficial abrasions consistent with excessive scratching. Course - Re-evaluation Re-evalutation: Patient reports continued pruritus after being diagnosed with eczema by her primary care provider. Patient reports trying multiple bplj-[id number] creams without relief. She does state that her primary care provider ordered her some type of prescription cream that had to be compounded at a pharmacy and [place] however she states she was unable to afford the medication. Patient does have COPD exacerbation currently ongoing. Patient reports increased sputum volume, increased purulence and increased wheezing and shortness of breath. Patient adamantly refusing chest x-ray she states she has had "too many x-rays in her lifetime". I did explain to patient that the only way for me to evaluate for pneumonia is to perform a chest x-ray. Patient reports she has not had a fever so she does not feel that she has pneumonia. Lung sounds improved after breathing treatments administered in the emergency department. Patient is a diabetic so will hold off on administering steroids as patient's breathing has improved significantly after breathing treatments. Patient reports she has daily inhaled corticosteroid inhalers at home as well as rescue inhaler. Patient will be prescribed topical triamcinolone cream as she states this has worked for her in the past. My attending physician did recommend clobetasol cream however this is not covered by patient's insurance. Patient will be placed on a course of steroids due to several week history of increased sputum production, increased purulence in the presence of COPD. Instructed patient to have close follow-up with her primary care provider. Patient and family member at bedside verbalized understanding. - Vital Signs Vital signs: Temp Pulse Resp BP Pulse Ox 98.4 F 14 181/68 H 96 04/03/18 13:26 04/03/18 14:00 04/03/18 14:00 04/03/18 14:00 Discharge - Discharge Clinical Impression: COPD exacerbation, Pruritus Condition: Stable Disposition: HOME, SELF-CARE Additional Instructions: Chronic Obstructive Lung Disease You have chronic obstructive lung disease (COPD). The symptoms come from emphysema (damage to small airways, with trapping of air in large sacks in the lung) and chronic bronchitis (repeated infection and damage to larger airways). The cause is almost always cigarette smoking, although dust exposure, asthma, and infections contribute. You should avoid fumes, dust, and smoke (especially tobacco smoke). Your condition will flare from time to time. There is no cure, but the symptoms can be treated. Bronchodilators (asthma medicine) are often helpful. Antibiotics help when infection is present. When shortness of breath is severe, we may prescribe cortisone medication. If medicine doesn't help enough, we can arrange for you to have an oxygen tank at home. Notify your doctor at once if sputum becomes thick, foul, or bloody, if you develop a fever or chest pain, or if your shortness of breath worsens. Itching, NonSpecific Itching can be a symptom of both skin problems or internal diseases. Most of the time, itching is simply a nuisance, and doesn't mean there's any serious underlying problem. If there are no symptoms of an ongoing medical condition, we simply prescribe anti-itch medicine to relieve symptoms. Itching can be due to skin allergic reactions such as poison oak, poison marielle, dermatitis, or jewelry allergy. It can be caused by dry skin, or skin that's been stretched by , weight gain, or water retention. It can be caused by skin parasites such as scabies, or by bug bites. Itching can be caused by internal allergy, such as food allergy, or medication allergy, or intestinal parasites. It can accompany liver disease. Apply a non-perfumed ointment like Vaseline, Eucerin lotion, Nutraderm, or Lubriderm if your skin is dry. Apply frequently, especially after bathing. Benadryl, Hydroxyzine, Doxepin and other anti-itch medicines can help control the urge to scratch. Hydrocortisone cream, or a prescription steroid cream or ointment can help reduce inflammation. Avoid hot baths or showers. Use as little soap as possible while bathing. Don't scrub your skin unless the doctor has specifically told you to do this. Call the doctor or return if there are signs of infection, fever, pain, or if symptoms become severe. Please use the cream that I have prescribed for your rash and itching. Do not apply anything else to the rash. Take the medications as prescribed for your COPD exacerbation as well as your itching. Follow-up with your primary care provider, call them tomorrow to schedule an appointment. Prescriptions: Doxycycline Hyclate 100 mg PO BID #14 capsule Famotidine 40 mg PO BID #14 tablet Triamcinolone Acetonide [Triderm] 454 gm TP BID #454 gm Referrals: Alejandra PEDROZA MD [Primary Care Provider] - Follow up as needed
[2018-04-03 14:18] VITALS: BP 181/68
== END 2018-04-03 16:35 | disposition home or self-care (01) ==
LOC: ER 13:09
DX: J44.1 Chronic obstructive pulmonary disease with (acute) exacerbation (principal); L29.9 Pruritus, unspecified; R21 Rash and other nonspecific skin eruption; R05 Cough; Z99.81 Dependence on supplemental oxygen; I10 Essential (primary) hypertension; E11.9 Type 2 diabetes mellitus without complications
CPT/HCPCS: 94640 ×2; 99283; 96374; S0028; A9270; J7620

== ENCOUNTER 2018-04-05 02:56 | Inpatient (IN) | payer MEDICARE, OTHER ==
[2018-04-05] MEDS ORDERED: METHYLPREDNISOLONE INJ 125 MG/2 ML SDV ONE (03:03)
[2018-04-05] MEDS ORDERED: MAGNESIUM SULFATE/D5W 2 GM/200 ML RTUPB IV ONE (03:03)
[2018-04-05] MEDS ORDERED: ALBUTEROL SULFATE 0.083% NEB 2.5 MG/3 ML AMPUL NEB ONE ×3 (03:05→03:59)
[2018-04-05] MEDS ORDERED: METHYLPREDNISOLONE INJ 125 MG/2 ML SDV IV ONE (03:09)
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
[2018-04-05 03:22] LABS: ABSOLUTE BASOPHILS # (AUTO) 0.2 10^3/uL (0.0-0.2); ABSOLUTE EOSINOPHILS # (AUTO) 0.7 10^3/uL (0.0-0.6); ABSOLUTE LYMPHOCYTES (AUTO) 1.2 10^3/uL (0.5-4.7); ABSOLUTE MONOCYTES (AUTO) 0.9 10^3/uL (0.1-1.4); ABSOLUTE NEUT (AUTO) 11.5 10^3/uL (1.7-8.2); BASOPHILS % (AUTO) 1.3 % (0-2); EOSINOPHILS % (AUTO) 4.8 % (0-6); HEMATOCRIT 27.9 % (36.0-47.0); HEMOGLOBIN 8.9 g/dL (12.0-15.5); LYMPHOCYTES % (AUTO) 8.5 % (13-45); MEAN CORPUSCULAR HEMOGLOBIN 28.9 pg (27.0-33.4); MEAN CORPUSCULAR HGB CONC 32.1 g/dL (32.0-36.0); MEAN CORPUSCULAR VOLUME 90 fl (80-97); MONOCYTES % (AUTO) 6.2 % (3-13); PLATELET COUNT 268 10^3/uL (150-450); RED CELL DISTRIBUTION WIDTH 16.4 % (11.5-14.0); SEGMENTED NEUTROPHILS % (AUTO) 79.2 % (42-78); TOTAL CELLS COUNTED % (AUTO) 100 %; WHITE BLOOD COUNT 14.5 10^3/uL (4.0-10.5)
[2018-04-05 03:27] LABS: INTERNATIONAL RATION (INR) 1.07; PROTHROMBIN TIME 14.5 SEC (11.4-15.4)
[2018-04-05 03:34] LABS: ALANINE AMINOTRANSFERASE 10 U/L (9-52); ALBUMIN 3.8 g/dL (3.5-5.0); ALKALINE PHOSPHATASE 91 U/L (38-126); ANION GAP 7 (5-19); ASPARTATE AMINO TRANSFERASE 26 U/L (14-36); BILIRUBIN,DIRECT 0.2 mg/dL (0.0-0.4); BILIRUBIN,TOTAL 0.6 mg/dL (0.2-1.3); BLOOD UREA NITROGEN 51 mg/dL (7-20); CARBON DIOXIDE 30 mmol/L (22-30); CHLORIDE 108 mmol/L (98-107); GLUCOSE 183 mg/dL (75-110); POTASSIUM 5.7 mmol/L (3.6-5.0); TOTAL PROTEIN 7.3 g/dL (6.3-8.2)
[2018-04-05] MEDS ORDERED: IPRATROPIUM/ALBUTEROL 0.5-2.5 MG/3 ML AMPUL NEB ONE (03:59)
--- NOTE | 2018-04-05 04:41 | RADIOLOGY REPORT (SQ) ---
EXAM DESCRIPTION: XR CHEST 1 VIEW COMPLETED DATE/TME: 04/05/2018 03:06 CLINICAL HISTORY: 82 years, Female, Shortness of breath COMPARISON: 07/25/2017 NUMBER OF VIEWS: One TECHNIQUE: AP view of the chest LIMITATIONS: None. FINDINGS: Lungs are clear. The heart is enlarged. There is no pneumothorax or pleural effusion. There is no acute fracture IMPRESSION: No acute cardiopulmonary abnormality copyright 2010 [employer]- All Rights Reserved
[2018-04-05] MEDS ORDERED: METOPROLOL TARTRATE PF/INJ 5 MG/5 ML SDV IV PRN (06:03)
[2018-04-05] MEDS ORDERED: METOPROLOL TARTRATE PF/INJ 5 MG/5 ML SDV IV ONE ×2 (06:03→06:24)
[2018-04-05] MEDS ORDERED: FUROSEMIDE INJ/PF 40 MG/4 ML SDV IV ONE (06:04)
[2018-04-05] MEDS ORDERED: ACETAMINOPHEN 325 MG TABLET PO PRN (06:05)
[2018-04-05] MEDS ORDERED: MAGNESIUM HYDROXIDE SUSP 30 ML UDCUP PO PRN (06:05)
[2018-04-05] MEDS ORDERED: HYDRALAZINE HCL INJ/PF 20 MG/1 ML SDV IV PRN (06:08)
[2018-04-05] MEDS ORDERED: LACTULOSE SYRUP 20 GM/30 ML UDCUP PO ONE (06:08)
[2018-04-05] MEDS ORDERED: FLUTICASONE NASAL SPRAY 50 MCG/SPRY 120 SPRAY/16 GM NASL ONE (06:45)
[2018-04-05] MEDS ORDERED: NITROGLYCERIN 5 MG (0.2 MG/HR) PATCH.TD24 TD ONE (06:45)
--- NOTE | 2018-04-05 06:45 | PDOC H&P ---
History of Present Illness Admission Date/PCP: 04/05/18 06:26 YONATHAN CHAVEZ PA-C Patient complains of: Shortness of breath History of Present Illness: DEDE RAMIREZ is a 82 year old female with an unclear past medical history of though presumed by medication regiment to include congestive heart failure, atrial fibrillation, CKD 3, oxygen dependent COPD, bronchitis and diabetes. Patient presents with 4 days of shortness of breath, rhinorrhea, sore throat and GERD. Evaluated in the emergency department 48 hours ago diagnosed with COPD exacerbation with bronchitis. She was discharged home but continued to worsen prompting reevaluation the emergency room where she is found to have A. fib with RVR, hypertensive urgency of 207/114, hyperkalemia, and cardiomegaly with pulmonary vascular congestion. She receives several nebulizer treatments, chanell pastora on BiPAP and referred to the hospitalist for admission. Patient is awake and alert on BiPAP but remains short of breath verifying the above. He denies chest pain nausea vomiting Past Medical History Cardiac Medical History: Reports: Atrial Fibrillation, Hypertension Pulmonary Medical History: Reports: Chronic Obstructive Pulmonary Disease (COPD) Endocrine Medical History: Reports: Diabetes Mellitus Type 2 Malignancy Medical History: Reports: Colorectal Cancer Musculoskeltal Medical History: Reports: Arthritis - in pain management Past Surgical History Past Surgical History: Reports: Appendectomy, Hysterectomy, Orthopedic Surgery - Right knee replaced, spinal fusion of the L5-S1., Tonsillectomy Social History Information Source: Patient, [facility] Records Lives with: Alone Smoking Status: Former Smoker Frequency of Alcohol Use: None Drugs: None - Advance Directive Resuscitation Status: Full Code Family History Family History: Hypertension Parental Family History Reviewed: Yes Children Family History Reviewed: Yes Sibling(s) Family History Reviewed.: Yes Medication/Allergy Home Medications: Digoxin [Lanoxin 0.125 mg Tablet] 0.125 mg PO DAILY 03/09/13 Furosemide [Lasix] 40 mg PO DAILY 03/09/13 Levothyroxine Sodium [Synthroid 0.112 mg Tablet] 0.112 mg PO DAILY 03/09/13 Losartan Potassium 100 mg PO DAILY 03/09/13 Metoprolol Tartrate [Lopressor 100 mg Tablet] 100 mg PO DAILY 03/09/13 Morphine Sulfate [Morphine Sulfate ER] 60 mg PO BID 03/09/13 Simvastatin 40 mg PO DAILY 03/09/13 Apixaban [Eliquis 5 mg Tablet] 5 mg PO BID 07/25/17 Benzonatate 100 mg PO RTTIDP PRN 07/25/17 Diltiazem HCl [Diltiazem ER] 120 mg PO DAILY 07/25/17 Docusate Sodium [Colace 100 mg Capsule] 100 mg PO BID 07/25/17 Insulin Glargine,Hum.rec.anlog [Toujeo Solostar] 46 unit SQ DAILY 07/25/17 Linagliptin [Tradjenta] 5 mg PO DAILY 07/25/17 Meclizine HCl 25 mg PO TID 07/25/17 Ranitidine HCl 300 mg PO DAILY 07/25/17 Doxycycline Hyclate 100 mg PO BID #14 capsule 04/03/18 Famotidine 40 mg PO BID #14 tablet 04/03/18 Triamcinolone Acetonide [Triderm] 454 gm TP BID #454 gm 04/03/18 Allergies/Adverse Reactions: No Known Drug Allergies Allergy (Verified 04/05/18 03:22) IVP dye Allergy (Uncoded 07/25/17 15:39) Review of Systems ROS unobtainable: Due to mental status - Respiratory distress, short of breath Physical Exam Vital Signs: Temp Pulse Resp BP Pulse Ox 96 31 H 209/78 H 95 04/05/18 03:00 04/05/18 05:01 04/05/18 04:03 04/05/18 05:01 Intake & Output 04/03/18 04/04/18 04/05/18 11:59 11:59 11:59 Weight 90 kg General appearance: PRESENT: cooperative, obese, severe distress Head exam: PRESENT: atraumatic, normocephalic Eye exam: PRESENT: conjunctiva pink, EOMI, PERRLA. ABSENT: scleral icterus Ear exam: PRESENT: normal external ear exam Mouth exam: PRESENT: moist, tongue midline Neck exam: ABSENT: carotid bruit, JVD, lymphadenopathy, thyromegaly Respiratory exam: PRESENT: accessory muscle use, clear to auscultation camilo, crackles, tachypnea. ABSENT: rales, rhonchi, wheezes Cardiovascular exam: PRESENT: irregular rhythm, tachycardia. ABSENT: diastolic murmur, rubs, systolic murmur Pulses: PRESENT: normal dorsalis pedis pul Vascular exam: PRESENT: normal capillary refill GI/Abdominal exam: PRESENT: normal bowel sounds, soft. ABSENT: distended, guarding, mass, organolmegaly, rebound, tenderness Rectal exam: PRESENT: deferred Extremities exam: PRESENT: full ROM. ABSENT: calf tenderness, clubbing, pedal edema Neurological exam: PRESENT: alert, awake, oriented to person, oriented to place, oriented to time, oriented to situation, CN II-XII grossly intact. ABSENT: motor sensory deficit Psychiatric exam: PRESENT: appropriate affect, normal mood. ABSENT: homicidal ideation, suicidal ideation Skin exam: PRESENT: dry, intact, warm. ABSENT: cyanosis, rash Results Laboratory Results: 04/05/18 03:05 04/05/18 03:05 04/05/18 04/05/18 03:05 03:05 WBC 14.5 H RBC 3.10 L Hgb 8.9 L Hct 27.9 L MCV 90 MCH 28.9 MCHC 32.1 RDW 16.4 H Plt Count 268 Seg Neutrophils % 79.2 H Lymphocytes % 8.5 L Monocytes % 6.2 Eosinophils % 4.8 Basophils % 1.3 Absolute Neutrophils 11.5 H Absolute Lymphocytes 1.2 Absolute Monocytes 0.9 Absolute Eosinophils 0.7 H Absolute Basophils 0.2 Sodium 145.0 Potassium 5.7 H Chloride 108 H Carbon Dioxide 30 Anion Gap 7 BUN 51 H Creatinine 1.85 H Est GFR ( Amer) 32 L Est GFR (Non-Af Amer) 26 L Glucose 183 H Calcium 9.0 Total Bilirubin 0.6 AST 26 ALT 10 Alkaline Phosphatase 91 Total Protein 7.3 Albumin 3.8 04/05/18 03:05 Troponin I 0.024 Impressions: Chest X-Ray 04/05/18 03:06 IMPRESSION: No acute cardiopulmonary abnormality copyright 2010 [employer]- All Rights Reserved Assessment & Plan - Diagnosis (1) Shortness of breath Is this a current diagnosis for this admission?: Yes Plan: Multifactorial shortness of breath, hypertensive urgency, A. fib with RVR and congestive heart failure, COPD exacerbation and anemia. BiPAP with supplemental oxygen, IV Lasix, IV Lopressor, hydralazine as needed. (2) Hypertensive urgency Is this a current diagnosis for this admission?: Yes Plan: Unclear compliance, IV Lasix, Lopressor and hydralazine initiated. (3) Hyperkalemia Is this a current diagnosis for this admission?: Yes Plan: Lasix and lactulose trial, no EKG changes follow-up chemistry (4) Chronic renal failure Is this a current diagnosis for this admission?: Yes Plan: At baseline, avoid nephrotoxic meds and doses, follow-up chemistry (5) Diabetes Is this a current diagnosis for this admission?: Yes Plan: Outpatient regiment with Humalog sliding scale coverage (6) Anemia Is this a current diagnosis for this admission?: Yes Plan: Follow-up anemia workup, consider packed red blood cell transfusion. (7) Atrial fibrillation with RVR Is this a current diagnosis for this admission?: Yes Plan: IV Lopressor, follow-up cardiac enzymes and BNP (8) Congestive heart failure Qualifiers: Heart failure type: systolic Is this a current diagnosis for this admission?: Yes Plan: Likely diastolic, optimize rate control, diuresis and BiPAP. Follow-up 2D echo - Time Time Spent: 50 to 70 Minutes - Inpatient Certification Medical Necessity: Need Close Monitoring Due to Risk of Patient Decompensation
[2018-04-05 06:53] LABS: ABSOLUTE RETICS # 0.108 10^6/uL (0.028-0.122); RETICULOCYTE COUNT (AUTO) 3.41 % (0.66-2.85)
[2018-04-05] MEDS ORDERED: DOCUSATE SODIUM 100 MG CAPSULE PO ONE (07:00)
[2018-04-05] MEDS ORDERED: ASPIRIN 81 MG TABLET, ENT COATED PO ONE (07:00)
[2018-04-05 07:04] LABS: IRON(TIBC) 34.5 ug/dL (37-170)
[2018-04-05 07:14] LABS: CREATINE KINASE MB 1.63 ng/mL (<4.55)
[2018-04-05 07:20] LABS: TROPONIN I 0.036 ng/mL
[2018-04-05 08:09] LABS: FOLATE 8.48 ng/mL (>2.76)
--- NOTE | 2018-04-05 09:24 | EKG REPORT ---
SEVERITY:- ABNORMAL ECG - ATRIAL FIBRILLATION, V-RATE 64-106 LOW VOLTAGE IN FRONTAL LEADS : Confirmed by: Michael Mejía 05-Apr-2018 09:23:56
[2018-04-05] MEDS ORDERED: HYDROXYZINE PAMOATE 25 MG CAPSULE PO PRN (12:47)
[2018-04-05] MEDS ORDERED: CLOBETASOL PROPIONATE 0.05% CREAM 15 GM TP PRN (12:47)
[2018-04-05] MEDS ORDERED: ALBUTEROL SULFATE HFA (90 MCG/PUFF) 200 PUFF/8.5 GM MDI IH PRN (12:47)
[2018-04-05] MEDS ORDERED: DEXTROSE 40% GEL 15 GM TUBE PO PRN ×2 (12:54)
[2018-04-05] MEDS ORDERED: DEXTROSE 50%-WATER 25 GM/50 ML DISP.SYRIN IV PRN ×2 (12:54)
[2018-04-05] MEDS ORDERED: GLUCAGON,HUMAN RECOMB 1 MG INJ IM PRN (12:54)
[2018-04-05 13:27] LABS: ALANINE AMINOTRANSFERASE 9 U/L (9-52); ALBUMIN 3.7 g/dL (3.5-5.0); ALKALINE PHOSPHATASE 88 U/L (38-126); ANION GAP 11 (5-19); ASPARTATE AMINO TRANSFERASE 19 U/L (14-36); BILIRUBIN,DIRECT 0.3 mg/dL (0.0-0.4); BILIRUBIN,TOTAL 0.6 mg/dL (0.2-1.3); BLOOD UREA NITROGEN 50 mg/dL (7-20); CALCIUM 8.5 mg/dL (8.4-10.2); CARBON DIOXIDE 25 mmol/L (22-30); CHLORIDE 102 mmol/L (98-107); CREATINE KINASE MB 1.84 ng/mL (<4.55); SODIUM 138.4 mmol/L (137-145); TOTAL PROTEIN 7.2 g/dL (6.3-8.2); TROPONIN I 0.019 ng/mL
--- NOTE | 2018-04-05 13:44 | PDOC PROGRESS REPORT ---
Subjective Progress Note for:: 04/05/18 Subjective:: No acute events since the admission. Patient is afebrile. Patient is comfortably in the bed on BiPAP. Denies any complaints. Reason For Visit: HTN URGENCY, AFIB, HEART FAILURE, COPD Physical Exam Vital Signs: Temp Pulse Resp BP Pulse Ox 97.4 F 104 H 24 H 159/69 H 99 04/05/18 11:35 04/05/18 12:51 04/05/18 12:51 04/05/18 11:35 04/05/18 12:51 Intake & Output 04/04/18 04/05/18 04/06/18 06:59 06:59 06:59 Intake Total 222 Balance 222 Weight 90 kg 87 kg General appearance: PRESENT: mild distress Head exam: PRESENT: atraumatic Eye exam: PRESENT: PERRLA Mouth exam: PRESENT: moist Teeth exam: PRESENT: poor dentation Neck exam: ABSENT: carotid bruit, JVD, lymphadenopathy, thyromegaly Respiratory exam: PRESENT: decreased breath sounds, wheezes Cardiovascular exam: PRESENT: irregular rhythm, systolic murmur, tachycardia GI/Abdominal exam: PRESENT: normal bowel sounds, soft. ABSENT: distended, guarding, mass, organolmegaly, rebound, tenderness Extremities exam: PRESENT: full ROM. ABSENT: calf tenderness, clubbing, pedal edema Neurological exam: PRESENT: alert, awake, oriented to person, oriented to place, oriented to time, oriented to situation, CN II-XII grossly intact. ABSENT: motor sensory deficit Psychiatric exam: PRESENT: appropriate affect, normal mood. ABSENT: homicidal ideation, suicidal ideation Results Laboratory Results: 04/05/18 03:05 04/05/18 04/05/18 04/05/18 03:05 03:05 03:05 WBC 14.5 H RBC 3.10 L Hgb 8.9 L Hct 27.9 L MCV 90 MCH 28.9 MCHC 32.1 RDW 16.4 H Plt Count 268 Seg Neutrophils % 79.2 H Lymphocytes % 8.5 L Monocytes % 6.2 Eosinophils % 4.8 Basophils % 1.3 Absolute Neutrophils 11.5 H Absolute Lymphocytes 1.2 Absolute Monocytes 0.9 Absolute Eosinophils 0.7 H Absolute Basophils 0.2 Retic Count (auto) 3.41 H Absolute Retic 0.108 Sodium 145.0 Potassium 5.7 H Chloride 108 H Carbon Dioxide 30 Anion Gap 7 BUN 51 H Creatinine 1.85 H Est GFR ( Amer) 32 L Est GFR (Non-Af Amer) 26 L Glucose 183 H Calcium 9.0 Iron TIBC % Saturation Ferritin Total Bilirubin 0.6 AST 26 ALT 10 Alkaline Phosphatase 91 Total Protein 7.3 Albumin 3.8 Vitamin B12 Folate 04/05/18 06:35 WBC RBC Hgb Hct MCV MCH MCHC RDW Plt Count Seg Neutrophils % Lymphocytes % Monocytes % Eosinophils % Basophils % Absolute Neutrophils Absolute Lymphocytes Absolute Monocytes Absolute Eosinophils Absolute Basophils Retic Count (auto) Absolute Retic Sodium Potassium Chloride Carbon Dioxide Anion Gap BUN Creatinine Est GFR ( Amer) Est GFR (Non-Af Amer) Glucose Calcium Iron 34.5 L TIBC 262 % Saturation 13 Ferritin 193.00 Total Bilirubin AST ALT Alkaline Phosphatase Total Protein Albumin Vitamin B12 673.0 Folate 8.48 04/05/18 04/05/18 04/05/18 03:05 06:35 06:35 Creatine Kinase 52 CK-MB (CK-2) 1.63 Troponin I 0.024 0.036 NT-Pro-B Natriuret Pep 6890 H 04/05/18 04/05/18 12:27 12:27 Creatine Kinase 56 CK-MB (CK-2) 1.84 Troponin I 0.019 NT-Pro-B Natriuret Pep Impressions: Chest X-Ray 04/05/18 03:06 IMPRESSION: No acute cardiopulmonary abnormality copyright 2010 [employer]- All Rights Reserved Assessment & Plan - Diagnosis (1) Shortness of breath Is this a current diagnosis for this admission?: Yes Plan: Multifactorial shortness of breath, hypertensive urgency, A. fib with RVR and congestive heart failure, COPD exacerbation and anemia. BiPAP with supplemental oxygen, IV Lasix, IV Lopressor, hydralazine as needed. 04/05/2018-patient has been admitted with acute on chronic respiratory failure with hypoxia she is on BiPAP as needed right now she is getting her scheduled nebulizations. And started on IV antibiotic therapy with Zosyn. Plan is to continue the nebulizations and started on IV Solu-Medrol. As mentioned above patient is on albuterol nebs and also on Xopenex nebulizations. Chest x-ray is negative for any pneumonia or fluid overload. (2) Atrial fibrillation with RVR Is this a current diagnosis for this admission?: Yes Plan: 04/05/2018 patient has history of atrial fibrillation with rapid ventricular rate. Patient is on Eliquis 2.5 mg p.o. twice daily at home plan is to resume the medication while she was in the hospital. Patient is on digoxin 0.125 mg daily, diltiazem 120 mg p.o. daily and metoprolol 100 mg p.o. daily those medications are resumed. (3) Hyperkalemia Is this a current diagnosis for this admission?: Yes Plan: 04/05/2018 potassium level is 5.7 in the emergency room. She was given lactulose 1 dose. Plan to recheck potassium levels today. (4) Diabetes Is this a current diagnosis for this admission?: Yes Plan: 04/05/2018-and has history of diabetes mellitus P going to check her hemoglobin A1c she was placed on a insulin sliding scale before meals and at bedtime. Patient was on glargine and insulin 46 units at bedtime. Plan is to restart her home medications. (5) Anemia Is this a current diagnosis for this admission?: Yes Plan: 04/05/2018-patient hemoglobin is 9.0. Plan is to recheck her CBC tomorrow. Anemia probably secondary to chronic kidney disease. - Time Time Spent with patient: 15-24 minutes Medications reviewed and adjusted accordingly: Yes Anticipated discharge: Home
[2018-04-05 13:50] LABS: GLUCOSE 408 mg/dL (75-110); POTASSIUM 6.1 mmol/L (3.6-5.0)
[2018-04-05] MEDS ORDERED: HEPARIN SOD (PORCINE) 5,000 UNIT/ML 1 ML SYRINGE SUBCUT SCH (14:00)
[2018-04-05] MEDS ORDERED: SODIUM POLYSTYRENE SULFONATE 15 GM/60 ML PO ONE (14:17)
[2018-04-05] MEDS: INSULIN REG, HUMAN 100 UNIT/ML 3 ML VIAL (PYX) SUBCUT PRN ×2 (14:26→22:04)
[2018-04-05] MEDS: INSULIN GLARGINE,HUM.REC.ANLOG 1,000 UNIT/10 ML UNIT SUBCUT SCH (14:26)
[2018-04-05] MEDS: DILTIAZEM HCL 120 MG CAP.SR.24H PO SCH (14:27)
[2018-04-05] MEDS ORDERED: INSULIN LISPRO 100 UNIT/ML 3 ML VIAL SUBCUT ONE (15:00)
[2018-04-05] MEDS ORDERED: DEXTROSE 50%-WATER 25 GM/50 ML DISP.SYRIN IV ONE (16:00)
[2018-04-05] MEDS ORDERED: INSULIN REG, HUMAN 100 UNIT/ML 3 ML VIAL (PYX) SUBCUT ONE (16:00)
[2018-04-05] MEDS ORDERED: PATIROMER 8.4 GM SUSP PACKET PO ONE (16:15)
[2018-04-05] MEDS: PIPERACILLIN SODIUM/TAZOBACTAM 3.375 GM in NORMAL SALINE 100 ML IV SCH (16:25)
--- NOTE | 2018-04-05 16:29 | XCELERA REPORT ---
[address] [place] [facility] [address] Lower Extremity Venous Evaluation Procedure: Color flow and duplex imaging of the veins of the left lower extremity as well as the right Common Femoral vein. Right Sided Venous Evaluation The right common femoral vein is fully compressible. Spontaneous and phasic flow is present in the right common femoral vein. Left Sided Venous Evaluation Normal vessel filling wall to wall, compression and augmentation as well as Colour flow down to the infrageniculate veins. Interpretation Summary No duplex evidence of DVT or obstruction in the left lower extremity nor in the right Common Femoral vein. Name: DEDE RAMIREZ Age: 82 yrs Gender: Female : 1935 Patient Status: Inpatient Patient Location: [facility]^A Study Date: 04/05/2018 10:38 AM Reason For Study: left leg swelling Ordering Physician: KENNETH CARTER Performed By: Morris Archibald : KENNETH CARTER > [place] S[place]
[2018-04-05] MEDS: LEVALBUTEROL HCL NEB 1.25 MG/3 ML AMPUL NEB PRN (17:15)
[2018-04-05] MEDS ORDERED: PIPERACILLIN/TAZOBACTAM 3.375 GM VIAL IV SCH (18:00)
[2018-04-05 19:23] LABS: CREATINE KINASE MB 2.11 ng/mL (<4.55); TROPONIN I 0.027 ng/mL
[2018-04-05] MEDS: SIMVASTATIN 40 MG TABLET PO SCH (21:15)
[2018-04-05] MEDS: APIXABAN 2.5 MG TABLET PO SCH (21:15)
[2018-04-05] MEDS: FUROSEMIDE INJ/PF 40 MG/4 ML SDV IV SCH (21:16)
[2018-04-05] MEDS: FLUTICASONE NASAL SPRAY 50 MCG/SPRY 120 SPRAY/16 GM NASL SCH (21:16)
[2018-04-05] MEDS: METHYLPREDNISOLONE INJ 40 MG/1 ML SDV IV SCH (21:18)
[2018-04-05 22:22] LABS: APPEARANCE,URINE CLEAR; BILIRUBIN,URINE NEGATIVE (NEGATIVE); CALCIUM OXALATE CRYSTALS,URINE FEW /HPF; COLOR,URINE YELLOW; GLUCOSE, URINE NEGATIVE (NEGATIVE); KETONES,URINE NEGATIVE (NEGATIVE); LEUKOCYTE ESTERASE,URINE NEGATIVE (NEGATIVE); NITRITE,URINE NEGATIVE (NEGATIVE); PROTEIN,URINE 100 mg/dL (NEGATIVE); URINE SPECIFIC GRAVITY 1.011; UROBILINOGEN,URINE NEGATIVE mg/dL (<2.0)
[2018-04-06] MEDS: PIPERACILLIN SODIUM/TAZOBACTAM 3.375 GM in NORMAL SALINE 100 ML IV SCH (01:53)
[2018-04-06 04:58] LABS: MEAN CORPUSCULAR HEMOGLOBIN 28.7 pg (27.0-33.4); MEAN CORPUSCULAR HGB CONC 32.8 g/dL (32.0-36.0); MEAN CORPUSCULAR VOLUME 87 fl (80-97); PLATELET COUNT 208 10^3/uL (150-450); RED BLOOD COUNT 2.51 10^6/uL (3.72-5.28); RED CELL DISTRIBUTION WIDTH 16.1 % (11.5-14.0)
[2018-04-06 05:24] LABS: ANION GAP 5 (5-19); BLOOD UREA NITROGEN 58 mg/dL (7-20); CALCIUM 8.8 mg/dL (8.4-10.2); CARBON DIOXIDE 30 mmol/L (22-30); CHLORIDE 104 mmol/L (98-107); GLUCOSE 107 mg/dL (75-110); POTASSIUM 5.8 mmol/L (3.6-5.0); SODIUM 139.1 mmol/L (137-145)
[2018-04-06 05:37] LABS: ABSOLUTE LYMPHOCYTES# (MANUAL) 0.7 10^3/uL (0.5-4.7); ABSOLUTE MONOCYTES # (MANUAL) 0.4 10^3/uL (0.1-1.4); ABSOLUTE NEUTROPHILS# (MANUAL) 12.9 10^3/uL (1.7-8.2); ANISOCYTOSIS 1+; BASOPHILS % (MANUAL) 0 % (0-2); EOSINOPHILS % (MANUAL) 0 % (0-6); LYMPHOCYTES % (MANUAL) 5 % (13-45); MONOCYTES % (MANUAL) 3 % (3-13); PLATELET COMMENT ADEQUATE; POLYCHROMASIA 1+; SEGMENTED NEUTROPHILS % (MAN) 92 % (42-78); TOTAL CELLS COUNTED 100
[2018-04-06 05:39] LABS: HEMOGLOBIN 7.2 g/dL (12.0-15.5)
[2018-04-06] MEDS: LEVOTHYROXINE SODIUM 0.112 MG TABLET PO SCH (06:24)
[2018-04-06] MEDS ORDERED: LACTULOSE SYRUP 20 GM/30 ML UDCUP PO ONE ×2 (07:00→11:00)
[2018-04-06] MEDS ORDERED: SODIUM POLYSTYRENE SULFONATE 15 GM/60 ML PO ONE (07:00)
[2018-04-06] MEDS ORDERED: (PENDING PHARMACY ID) (Diltiazem Hcl [Diltiazem Er] 120 MG) PO SCH (08:00)
[2018-04-06] MEDS ORDERED: FUROSEMIDE 40 MG TABLET PO SCH (10:00)
[2018-04-06] MEDS ORDERED: LOSARTAN POTASSIUM 50 MG TABLET PO SCH (10:00)
[2018-04-06] MEDS ORDERED: INSULIN GLARGINE HUM REC ANLOG 46 UNIT SQ SCH (10:00)
[2018-04-06] MEDS ORDERED: (PENDING PHARMACY ID) (Linagliptin [Tradjenta] 5 MG) PO SCH (10:00)
[2018-04-06] MEDS: NITROGLYCERIN 5 MG (0.2 MG/HR) PATCH.TD24 TD SCH (10:31)
[2018-04-06] MEDS: CALCITRIOL 0.25 MCG CAPSULE PO SCH (10:31)
[2018-04-06] MEDS: METOPROLOL SUCCINATE 50 MG TAB.SR.24H PO SCH (10:32)
[2018-04-06] MEDS: DOCUSATE SODIUM 100 MG CAPSULE PO SCH (10:32)
[2018-04-06] MEDS: DILTIAZEM HCL 120 MG CAP.SR.24H PO SCH (10:32)
[2018-04-06] MEDS: APIXABAN 2.5 MG TABLET PO SCH ×2 (10:32→21:30)
[2018-04-06] MEDS: METHYLPREDNISOLONE INJ 40 MG/1 ML SDV IV SCH ×2 (10:32→21:35)
[2018-04-06] MEDS: SITAGLIPTIN PHOSPHATE 25 MG TABLET PO SCH (10:32)
[2018-04-06] MEDS: FUROSEMIDE INJ/PF 40 MG/4 ML SDV IV SCH ×2 (10:32→21:31)
[2018-04-06] MEDS: DIGOXIN 0.125 MG TABLET PO SCH (10:32)
[2018-04-06] MEDS: FLUTICASONE NASAL SPRAY 50 MCG/SPRY 120 SPRAY/16 GM NASL SCH ×2 (10:33→21:30)
[2018-04-06] MEDS: ASPIRIN 81 MG TABLET, ENT COATED PO SCH (10:33)
[2018-04-06] MEDS: INSULIN GLARGINE,HUM.REC.ANLOG 1,000 UNIT/10 ML UNIT SUBCUT SCH (10:33)
[2018-04-06] MEDS: LEVALBUTEROL HCL NEB 1.25 MG/3 ML AMPUL NEB PRN (14:43)
--- NOTE | 2018-04-06 15:52 | PROGRESS NOTE E ---
Progress Note NAME: DEDE RAMIREZ : 1935 AGE: 82Y DATE: 04/06/2018 ROOM: 306 SUBJECTIVE: The patient is a pleasant 82-year-old female who has a past medical history of atrial fibrillation, hypertension, COPD. The patient admitted with COPD exacerbation and shortness of breath. She is feeling better today. OBJECTIVE: GENERAL: Patient is lying in bed, comfortable, not in distress. VITAL SIGNS: Blood pressure is 115/98, temperature 97.4, heart rate 75. HEENT: Normocephalic, atraumatic. Pupils equal, round, reactive to light and accommodation bilaterally. Extraocular movements intact. Ears: Tympanic membranes intact bilaterally. No discharge from the ears. No discharge from the nose. NECK: Supple. No increased JVD. No thyromegaly, no lymphadenopathy. CARDIOVASCULAR: Normal S1, S2. Regular rate and rhythm. No murmur, no gallop. RESPIRATORY: Lungs: Bilateral crackles and wheezing. ABDOMEN: Soft, nontender. MUSCULOSKELETAL: No edema. NEUROLOGIC: Awake, alert. SKIN: No rash. LABORATORY DATA: Sodium 114, potassium 7.2. Hematocrit is 22. Sodium 139, potassium 5.8. Creatinine is 1.8. ASSESSMENT: 1. COPD EXACERBATION. 2. SHORTNESS OF BREATH. 3. ATRIAL FIBRILLATION WITH RVR. 4. ANEMIA OF CHRONIC DISEASE. 5. HYPERKALEMIA, PROBABLY SECONDARY TO MEDICATION. Patient is on Cozaar 100 mg daily. 6. DIABETES MELLITUS TYPE 2. PLAN: Will continue methylprednisolone nebulizer. Continue Lasix 40 mg IV q.12 hours. Discontinue Cozaar because of hyperkalemia and will give her Kayexalate 1 dose. Repeat potassium later today. DISPOSITION: Probably home in 1 or 2 days. MEDICAL NECESSITY: The patient is still on IV Solu-Medrol and she has had hyperkalemia. Needs to be monitored. DICTATING PHYSICIAN: TRAVIS PAULA M.D. [id number] PHY#: [id number] ID: [id number] JOB#: [id number] ACCT: [id number] cc: >
[2018-04-06] MEDS: INSULIN REG, HUMAN 100 UNIT/ML 3 ML VIAL (PYX) SUBCUT PRN ×2 (17:36→21:44)
[2018-04-06] MEDS: SIMVASTATIN 40 MG TABLET PO SCH (21:30)
[2018-04-07] MEDS: LEVOTHYROXINE SODIUM 0.112 MG TABLET PO SCH (06:09)
[2018-04-07 08:06] LABS: HEMATOCRIT 23.9 % (36.0-47.0); MEAN CORPUSCULAR HEMOGLOBIN 28.7 pg (27.0-33.4); MEAN CORPUSCULAR HGB CONC 32.5 g/dL (32.0-36.0); MEAN CORPUSCULAR VOLUME 88 fl (80-97); PLATELET COUNT 230 10^3/uL (150-450); RED CELL DISTRIBUTION WIDTH 16.2 % (11.5-14.0); WHITE BLOOD COUNT 15.2 10^3/uL (4.0-10.5)
[2018-04-07 08:19] LABS: ALBUMIN 3.1 g/dL (3.5-5.0); ANION GAP 9 (5-19); BLOOD UREA NITROGEN 72 mg/dL (7-20); CALCIUM 8.8 mg/dL (8.4-10.2); CARBON DIOXIDE 28 mmol/L (22-30); CHLORIDE 99 mmol/L (98-107); GLUCOSE 178 mg/dL (75-110); PHOSPHORUS 5.5 mg/dL (2.5-4.5); POTASSIUM 5.5 mmol/L (3.6-5.0); SODIUM 135.7 mmol/L (137-145)
[2018-04-07 08:33] LABS: HEMOGLOBIN 7.8 g/dL (12.0-15.5)
[2018-04-07 08:36] LABS: ABSOLUTE LYMPHOCYTES# (MANUAL) 1.2 10^3/uL (0.5-4.7); ABSOLUTE MONOCYTES # (MANUAL) 0.2 10^3/uL (0.1-1.4); ABSOLUTE NEUTROPHILS# (MANUAL) 13.8 10^3/uL (1.7-8.2); BASOPHILS % (MANUAL) 0 % (0-2); EOSINOPHILS % (MANUAL) 0 % (0-6); LYMPHOCYTES % (MANUAL) 8 % (13-45); MONOCYTES % (MANUAL) 1 % (3-13); SEGMENTED NEUTROPHILS % (MAN) 91 % (42-78); TOTAL CELLS COUNTED 100
[2018-04-07 08:37] LABS: ANISOCYTOSIS 1+; OVALOCYTES SLIGHT; PLATELET COMMENT ADEQUATE; POIKILOCYTOSIS 1+; SCHISTOCYTES SLIGHT; TOXIC GRANULATION 1+
[2018-04-07 09:44] LABS: HEMATOCRIT 23.2 % (36.0-47.0); MEAN CORPUSCULAR HEMOGLOBIN 28.6 pg (27.0-33.4); MEAN CORPUSCULAR HGB CONC 32.6 g/dL (32.0-36.0); MEAN CORPUSCULAR VOLUME 88 fl (80-97); PLATELET COUNT 229 10^3/uL (150-450); RED BLOOD COUNT 2.65 10^6/uL (3.72-5.28); RED CELL DISTRIBUTION WIDTH 16.4 % (11.5-14.0); WHITE BLOOD COUNT 15.6 10^3/uL (4.0-10.5)
[2018-04-07] MEDS ORDERED: PREDNISOLONE SOD PHOS 15 MG/5 ML ORAL SYRING PO SCH (10:00)
[2018-04-07 10:04] LABS: ABSOLUTE LYMPHOCYTES# (MANUAL) 0.9 10^3/uL (0.5-4.7); ABSOLUTE NEUTROPHILS# (MANUAL) 14.7 10^3/uL (1.7-8.2); BASOPHILS % (MANUAL) 0 % (0-2); EOSINOPHILS % (MANUAL) 0 % (0-6); LYMPHOCYTES % (MANUAL) 6 % (13-45); MONOCYTES % (MANUAL) 0 % (3-13); SEGMENTED NEUTROPHILS % (MAN) 94 % (42-78); TOTAL CELLS COUNTED 100
[2018-04-07 10:05] LABS: ANISOCYTOSIS 1+; POIKILOCYTOSIS SLIGHT; TOXIC GRANULATION 1+; TOXIC VACUOLATION PRESENT
[2018-04-07 10:06] LABS: OVALOCYTES SLIGHT; PLATELET COMMENT ADEQUATE
[2018-04-07] MEDS: CALCITRIOL 0.25 MCG CAPSULE PO SCH (10:16)
[2018-04-07] MEDS: METOPROLOL SUCCINATE 50 MG TAB.SR.24H PO SCH (10:16)
[2018-04-07] MEDS: ASPIRIN 81 MG TABLET, ENT COATED PO SCH (10:16)
[2018-04-07] MEDS: PREDNISONE 20 MG TABLET PO SCH ×2 (10:16→17:25)
[2018-04-07] MEDS: DILTIAZEM HCL 120 MG CAP.SR.24H PO SCH (10:16)
[2018-04-07] MEDS: FUROSEMIDE 40 MG TABLET PO SCH ×2 (10:16→17:25)
[2018-04-07] MEDS: SITAGLIPTIN PHOSPHATE 25 MG TABLET PO SCH (10:16)
[2018-04-07] MEDS: APIXABAN 2.5 MG TABLET PO SCH ×2 (10:16→22:09)
[2018-04-07] MEDS: DOCUSATE SODIUM 100 MG CAPSULE PO SCH (10:16)
[2018-04-07] MEDS: FLUTICASONE NASAL SPRAY 50 MCG/SPRY 120 SPRAY/16 GM NASL SCH ×2 (10:17→22:12)
[2018-04-07] MEDS: INSULIN GLARGINE,HUM.REC.ANLOG 1,000 UNIT/10 ML UNIT SUBCUT SCH (10:17)
[2018-04-07] MEDS: NITROGLYCERIN 5 MG (0.2 MG/HR) PATCH.TD24 TD SCH (10:17)
[2018-04-07] MEDS: DIGOXIN 0.125 MG TABLET PO SCH (10:18)
[2018-04-07 10:29] LABS: HEMOGLOBIN 7.6 g/dL (12.0-15.5)
[2018-04-07] MEDS: LEVALBUTEROL HCL NEB 1.25 MG/3 ML AMPUL NEB PRN ×2 (11:00→16:40)
[2018-04-07] MEDS: INSULIN REG, HUMAN 100 UNIT/ML 3 ML VIAL (PYX) SUBCUT PRN ×3 (12:15→22:09)
--- NOTE | 2018-04-07 15:12 | PROGRESS NOTE E ---
Progress Note NAME: DEDE RAMIREZ : 1935 AGE: 82Y DATE: 04/07/2018 ROOM: 306 SUBJECTIVE: The patient is an 82-year-old female who has a past medical history of atrial fibrillation, hypertension and COPD, admitted with COPD exacerbation and congestive heart failure. The patient has a history of heart failure diagnosed recently and she has a senior engineer in [place]. She was evaluated today, with family at bedside. Patient is feeling better. OBJECTIVE: GENERAL: Patient lying in bed, comfortable, not in distress. VITAL SIGNS: Blood pressure 152/59, temperature 97.5, heart rate 64, respiratory rate 18, saturation is 97% on 3 liters. HEENT: Head normocephalic, atraumatic. Pupils round, reactive to the light and accommodation bilaterally. Extraocular movements intact. Ears: Tympanic membranes intact bilaterally. No discharge from the ears. No discharge from the nose. NECK: Supple. No increased JVD. No thyromegaly, no lymphadenopathy. CARDIOVASCULAR: Normal S1, S2. Regular rate and rhythm. No murmur, no gallop. RESPIRATORY: Bilateral crackles. ABDOMEN: Soft, nontender. MUSCULOSKELETAL: No edema. NEUROLOGICAL: Awake, alert. SKIN: No rash. LABORATORY DATA: White blood count 135, potassium 5.5, creatinine 2.0. Hematocrit 15, hemoglobin 7.8. ASSESSMENT AND PLAN: 1. ACUTE HYPOXIC RESPIRATORY FAILURE, SECONDARY TO COPD EXACERBATION AND CONGESTIVE HEART FAILURE. 2. ATRIAL FIBRILLATION WITH RAPID VENTRICULAR RESPONSE. 3. HYPERKALEMIA, RESOLVED. Cozaar was discontinued. 4. ATRIAL FIBRILLATION. 5. ANEMIA OF CHRONIC DISEASE. 6. DIABETES TYPE 2. PLAN: Will continue Lasix 40 mg. Will change Lasix to p.o. Change the prednisone to p.o. Consult cyber policy and strategy planner for home oxygen. DISPOSITION: Possible discharge tomorrow. TIME SPENT: Twenty-five minutes. DICTATING PHYSICIAN: TRAVIS PAULA M.D. [id number] PHY#: [id number] ID: [id number] JOB#: [id number] ACCT: [id number] cc: >
[2018-04-07] MEDS: SIMVASTATIN 40 MG TABLET PO SCH (22:09)
[2018-04-08] MEDS: LEVOTHYROXINE SODIUM 0.112 MG TABLET PO SCH (06:20)
[2018-04-08] MEDS ORDERED: SODIUM POLYSTYRENE SULFONATE 15 GM/60 ML PO ONE (07:57)
[2018-04-08] MEDS ORDERED: FERROUS SULFATE 325 MG TABLET PO SCH (09:00)
[2018-04-08] MEDS: FUROSEMIDE 40 MG TABLET PO SCH ×2 (09:28→19:52)
[2018-04-08] MEDS: CALCITRIOL 0.25 MCG CAPSULE PO SCH (09:28)
[2018-04-08] MEDS: APIXABAN 2.5 MG TABLET PO SCH ×2 (09:28→21:27)
[2018-04-08] MEDS: DIGOXIN 0.125 MG TABLET PO SCH (09:28)
[2018-04-08] MEDS: SITAGLIPTIN PHOSPHATE 25 MG TABLET PO SCH (09:28)
[2018-04-08] MEDS: ASPIRIN 81 MG TABLET, ENT COATED PO SCH (09:28)
[2018-04-08] MEDS: DOCUSATE SODIUM 100 MG CAPSULE PO SCH (09:28)
[2018-04-08] MEDS: DILTIAZEM HCL 120 MG CAP.SR.24H PO SCH (09:28)
[2018-04-08] MEDS: METOPROLOL SUCCINATE 50 MG TAB.SR.24H PO SCH (09:28)
[2018-04-08] MEDS: PREDNISONE 20 MG TABLET PO SCH ×2 (09:28→19:52)
[2018-04-08] MEDS: FLUTICASONE NASAL SPRAY 50 MCG/SPRY 120 SPRAY/16 GM NASL SCH ×2 (09:28→22:10)
[2018-04-08] MEDS: NITROGLYCERIN 5 MG (0.2 MG/HR) PATCH.TD24 TD SCH (09:29)
[2018-04-08] MEDS: INSULIN GLARGINE,HUM.REC.ANLOG 1,000 UNIT/10 ML UNIT SUBCUT SCH (09:29)
[2018-04-08] MEDS: INSULIN REG, HUMAN 100 UNIT/ML 3 ML VIAL (PYX) SUBCUT PRN ×3 (11:36→21:31)
[2018-04-08] MEDS ORDERED: ACETAMINOPHEN 325 MG TABLET PO PRN (12:25)
[2018-04-08] MEDS ORDERED: NORMAL SALINE 250 ML IV PRN ×2 (12:25)
[2018-04-08] MEDS ORDERED: FUROSEMIDE 20 MG TABLET PO PRN (12:25)
--- NOTE | 2018-04-08 13:32 | PDOC PROGRESS REPORT ---
Addendum entered and electronically signed by LANDRY TIDWELL NP-C 04/08/18 19:23: Provider Note Provider Note: Received call from Dr. Cassidy after echocardiogram review. Patient is found to have severe pulmonary hypertension by echo with an RSVP of 145-[address] Skinner recommends arranging for transfer of the patient to [facility]'s pulmonary hypertension service in the morning. Dr. Skinner advises against discharge to home as had been previously planned. Original Note: Subjective Progress Note for:: 04/08/18 Subjective:: The patient is an 82-year-old female with a past medical history of atrial fibrillation, hypertension, COPD, CHF, and DM2 who was admitted 04/05/18 for acute hypoxic respiratory failure secondary to COPD and CHF exacerbations. Patient was seen on morning rounds with family present (introduces me to her daughter and son). She reports that she is feeling well today. She does report continued fatigue, orthopnea, and dyspnea on exertion. The patient is noted to be sitting semi-rodriguez's with 3 pillows. She reports that she has 3 pillow orthopnea at home which has been her normal for several years. She does tell me that if I were to lay her flat she would very quickly become short of breath. She does note that she feels improved as compared to when she was admitted and is pleased by the resolution of the edema to her bilateral extremities. The patient's daughter tells me that she was ambulatory to the shower and returned to her room on room air with slight dizziness and shortness of breath. We discussed the patient's chronic anemia; followed by Dr. Pineda and regularly receives iron infusions. She has never received a transfusion before and does not know her baseline hemoglobin but expresses some interest in receiving a transfusion today. Were answered to the best of my ability. The patient's daughter has numerous questions that were answered to the best of my ability. The patient's daughter says that they would like to discuss a blood transfusion amongst themselves before providing a decision. The patient has no other specific questions or concerns today. No concerns per nursing. Reason For Visit: HTN URGENCY, AFIB, HEART FAILURE, COPD Physical Exam Vital Signs: Temp Pulse Resp BP Pulse Ox 97.6 F 86 16 148/82 H 98 04/08/18 07:26 04/08/18 08:00 04/08/18 08:00 04/08/18 07:26 04/08/18 08:00 Intake & Output 04/07/18 04/08/18 04/09/18 06:59 06:59 06:59 Intake Total 240 Balance 240 Weight 91.9 kg 89.7 kg General appearance: PRESENT: no acute distress, cooperative, obese, well- developed, well-nourished Head exam: PRESENT: atraumatic, normocephalic Eye exam: PRESENT: conjunctiva pale, EOMI, PERRLA. ABSENT: scleral icterus Ear exam: PRESENT: normal external ear exam Mouth exam: PRESENT: moist, tongue midline Neck exam: ABSENT: carotid bruit, JVD, lymphadenopathy, thyromegaly Respiratory exam: PRESENT: clear to auscultation camilo, decreased breath sounds - bibasilar, symmetrical, unlabored, other - supplemental oxygen via NC. ABSENT: rales, rhonchi, wheezes Cardiovascular exam: PRESENT: RRR, +S1, +S2. ABSENT: diastolic murmur, rubs, systolic murmur Pulses: PRESENT: normal dorsalis pedis pul Vascular exam: PRESENT: normal capillary refill GI/Abdominal exam: PRESENT: normal bowel sounds, soft. ABSENT: distended, guarding, mass, organolmegaly, rebound, tenderness Rectal exam: PRESENT: deferred Extremities exam: PRESENT: full ROM, pedal edema - Trace BLE. ABSENT: calf tenderness, clubbing Neurological exam: PRESENT: alert, awake, oriented to person, oriented to place, oriented to time, oriented to situation, CN II-XII grossly intact. ABSENT: motor sensory deficit Psychiatric exam: PRESENT: appropriate affect, normal mood. ABSENT: homicidal ideation, suicidal ideation Skin exam: PRESENT: dry, intact, warm. ABSENT: cyanosis, rash Results Laboratory Results: 04/07/18 09:36 04/07/18 07:22 04/05/18 04/05/18 04/05/18 03:05 06:35 06:35 Creatine Kinase 52 CK-MB (CK-2) 1.63 Troponin I 0.024 0.036 NT-Pro-B Natriuret Pep 6890 H 04/05/18 04/05/18 04/05/18 12:27 12:27 18:30 Creatine Kinase 56 64 CK-MB (CK-2) 1.84 Troponin I 0.019 NT-Pro-B Natriuret Pep 04/05/18 04/06/18 18:30 04:01 Creatine Kinase CK-MB (CK-2) 2.11 Troponin I 0.027 NT-Pro-B Natriuret Pep 9440 H Impressions: Chest X-Ray 04/05/18 03:06 IMPRESSION: No acute cardiopulmonary abnormality copyright 2010 [employer]- All Rights Reserved Assessment & Plan - Diagnosis (1) Acute respiratory failure with hypoxia Is this a current diagnosis for this admission?: Yes Plan: Improved. Acute respiratory failure with hypoxia secondary to COPD exacerbation and CHF exacerbation. The patient does use home oxygen when sleeping but has not required it when ambulatory. The patient does admit that she is at home walker, but utilizes electrical carts when at the grocery store and does become short of breath when walking short distances; cannot walk to her mailbox without taking pauses. Continue supplemental oxygen as needed to maintain oxygen saturations >89%. Will provide as needed nebulizer treatments. Continue weaning steroids; transition to p.o. prednisone this morning. Incentive spirometer and flutter valve to bedside. Encourage mobility; out of bed daily and amatory in the hallways. (2) Anemia of chronic disease Is this a current diagnosis for this admission?: Yes Plan: Patient reports chronic anemia followed by Dr. Pineda and JELANI Clayton ( nephrology). She reports that she regularly receives iron infusions. Does not know her baseline hemoglobin; admitted with a hemoglobin of 8.9 which is trended downward to 7.6 despite diuresis. Have started the patient on twice daily ferrous sulfate supplementation. Discussing with family members option for 1 unit PRBC; will make nursing aware if they decide to pursue this option. (3) Hyperkalemia Is this a current diagnosis for this admission?: Yes Plan: Likely secondary to CKD; potassium consistently elevated to 5.5. Unfortunately, Kayexalate is on nationwide backorder. Will initiate Veltassa; of note, this medication has a very slow onset of action and it is unlikely to make a significant difference in her laboratory values for several days. (4) COPD exacerbation Is this a current diagnosis for this admission?: Yes Plan: Improved. Continue supplemental oxygen, as needed nebs, daily prednisone therapy, Mucinex twice daily, incentive spirometer and flutter valve. Start Spiriva. (5) Atrial fibrillation with RVR Is this a current diagnosis for this admission?: Yes Plan: Now rate controlled in the 80s. Continue digoxin, diltiazem, metoprolol, and renally dosed Eliquis. (6) CHF (congestive heart failure) Is this a current diagnosis for this admission?: Yes Plan: ProBNP elevated to 9k Echocardiogram pending Has received IV furosemide for diuresis; has been transitioned to p.o. lasix. Continue antihypertensives as above. Daily aspirin and statin therapy. Cardiac diet. Daily weights and strict I&O's (7) Diabetes Qualifiers: Diabetes mellitus type: type 2 Is this a current diagnosis for this admission?: Yes Plan: Blood glucose expectedly elevated secondary to steroid therapy. Continue home dose Januvia. Lantus nightly. Consistent carb diet. Accu-Cheks before meals and at bedtime with Humalog for sliding scale coverage. - Time Time Spent with patient: 25-34 minutes Medications reviewed and adjusted accordingly: Yes Anticipated discharge: Home Within: within 48 hours
[2018-04-08 13:39] LABS: HEMOGLOBIN 8.3 g/dL (12.0-15.5); MEAN CORPUSCULAR HEMOGLOBIN 28.9 pg (27.0-33.4); MEAN CORPUSCULAR HGB CONC 33.1 g/dL (32.0-36.0); MEAN CORPUSCULAR VOLUME 87 fl (80-97); PLATELET COUNT 248 10^3/uL (150-450); RED BLOOD COUNT 2.86 10^6/uL (3.72-5.28); WHITE BLOOD COUNT 14.1 10^3/uL (4.0-10.5)
[2018-04-08] MEDS ORDERED: PATIROMER 8.4 GM SUSP PACKET PO SCH (15:00)
--- NOTE | 2018-04-08 18:55 | XCELERA REPORT ---
[address] [address] Transthoracic Echocardiogram Report Name: DEDE RAMIREZ Age: 82 yrs Gender: Female : 1935 Patient Status: Inpatient Patient Location: [address] [place], [place] [address] Study Date: 04/05/2018 09:39 AM Height: 64 in Weight: 192 lb BSA: 1.9 m2 Procedure: A two-dimensional transthoracic echocardiogram with color flow and Doppler was performed. The study was technically difficult with many images being suboptimal in quality. Reason For Study: Cardiomegaly with pulmonary vascular congestion History: CARDIOMRGALY / CHF. Ordering Physician: MARLEN LEA Performed By: Morris Archibald Interpretation Summary The left ventricle is normal in size. LV EF is 65% Left ventricular systolic function is normal. The left ventricular wall motion is normal. There is no thrombus. There is no ventricular septal defect visualized. The right ventricle is moderately dilated. The right ventricular systolic function is mild to moderately reduced. The right atrium is moderately dilated. The left atrium is severely dilated. The interatrial septum is intact with no evidence for an atrial septal defect. There is no Doppler evidence for an interatrial shunt There is no evidence of mitral valve prolapse. There is no vegetation seen on the mitral valve. There is no mitral valve stenosis. There is a moderate to severe amount of mitral regurgitation There is no aortic valvular vegetation. There is no aortic valve stenosis There is no LVOT obstruction. No aortic regurgitation is present. There is no tricuspid stenosis. There is a moderate to severe amount of tricuspid regurgitation The pulmonic valve is not well visualized. The aortic root is normal size. The inferior vena cava appeared dilated and decreased < 50% with respiration (RAP 15-20 mmHg) There is no pericardial effusion. There is servere pulmonary hypertension by echo rvsp is 145 to 150 mm of Hg with a RVSP of 10 to 5. MMode/2D Measurements & Calculations RVDd: 3.4 cm LVIDd: 5.1 cm FS: 36.9 % Ao root diam: 2.5 cm IVSd: 0.90 cm LVIDs: 3.2 cm EDV(Teich): 122.7 ml Ao root area: 5.1 cm2 LVPWd: 0.98 cm ESV(Teich): 41.1 ml LA dimension: 5.0 cm EF(Teich): 66.5 % Doppler Measurements & Calculations MV E max alicia: MV P1/2t max alicia: Ao V2 max: LV V1 max P.7 cm/sec 162.9 cm/sec 165.1 cm/sec 5.3 mmHg MV A max alicia: MV P1/2t: 37.1 msec Ao max PG: LV V1 max: 79.6 cm/sec MVA(P1/2t): 5.9 cm2 10.9 mmHg 114.7 cm/sec MV E/A: 2.1 MV dec slope: LV dP/dt: 4544 mmHg/s 1285 cm/sec2 MV dec time: 0.10 sec PA V2 max: TR max alicia: MV P1/2t-pr_phl: 123.4 cm/sec 582.4 cm/sec 37.1 msec PA max P.1 mmHgTR max P.7 mmHg Left Ventricle The left ventricle is normal in size. There is normal left ventricular wall thickness. LV EF is 65%. Left ventricular systolic function is normal. LV diastolic function could not be adequately assessed due to atrial fibrilation. The left ventricular wall motion is normal. There is no thrombus. There is no ventricular septal defect visualized. Right Ventricle The right ventricle is moderately dilated. The right ventricular systolic function is mild to moderately reduced. Atria The right atrium is moderately dilated. The left atrium is severely dilated. The interatrial septum is intact with no evidence for an atrial septal defect. There is no Doppler evidence for an interatrial shunt. Mitral Valve There is mild mitral annular calcification. There is no evidence of mitral valve prolapse. There is no vegetation seen on the mitral valve. There is no mitral valve stenosis. There is a moderate to severe amount of mitral regurgitation. Aortic Valve There is no aortic valvular vegetation. There is no aortic valve stenosis. There is no LVOT obstruction. No aortic regurgitation is present. Tricuspid Valve There is no tricuspid stenosis. There is a moderate to severe amount of tricuspid regurgitation. There is servere pulmonary hypertension by echo. rvsp is 145 to 150 mm of Hg with a RVSP of 10 to 5. Pulmonic Valve The pulmonic valve is not well visualized. Great Vessels The aortic root is normal size. The inferior vena cava appeared dilated and decreased < 50% with respiration (RAP 15-20 mmHg). Effusions There is no pericardial effusion. : MARLEN LEA > Chandrika Cassidy
[2018-04-08] MEDS: FERROUS SULFATE 325 MG TABLET PO SCH (19:52)
[2018-04-08] MEDS: SIMVASTATIN 40 MG TABLET PO SCH (21:27)
[2018-04-09 05:05] LABS: HEMOGLOBIN 9.3 g/dL (12.0-15.5); MEAN CORPUSCULAR HEMOGLOBIN 28.8 pg (27.0-33.4); MEAN CORPUSCULAR HGB CONC 33.3 g/dL (32.0-36.0); MEAN CORPUSCULAR VOLUME 87 fl (80-97); PLATELET COUNT 230 10^3/uL (150-450); RED BLOOD COUNT 3.24 10^6/uL (3.72-5.28); RED CELL DISTRIBUTION WIDTH 15.9 % (11.5-14.0)
[2018-04-09 05:34] LABS: ANION GAP 10 (5-19); BLOOD UREA NITROGEN 87 mg/dL (7-20); CALCIUM 8.7 mg/dL (8.4-10.2); CARBON DIOXIDE 28 mmol/L (22-30); CHLORIDE 98 mmol/L (98-107); GLUCOSE 164 mg/dL (75-110); POTASSIUM 4.9 mmol/L (3.6-5.0); SODIUM 135.9 mmol/L (137-145)
[2018-04-09] MEDS: LEVOTHYROXINE SODIUM 0.112 MG TABLET PO SCH (06:17)
[2018-04-09] MEDS ORDERED: TIOTROPIUM BROMIDE DPI 5 CAP/KIT (18 MCG/CAP) IH SCH (10:00)
[2018-04-09] MEDS: ASPIRIN 81 MG TABLET, ENT COATED PO SCH (10:09)
[2018-04-09] MEDS: METOPROLOL SUCCINATE 50 MG TAB.SR.24H PO SCH (10:09)
[2018-04-09] MEDS: FERROUS SULFATE 325 MG TABLET PO SCH (10:09)
[2018-04-09] MEDS: DOCUSATE SODIUM 100 MG CAPSULE PO SCH (10:09)
[2018-04-09] MEDS: DIGOXIN 0.125 MG TABLET PO SCH (10:09)
[2018-04-09] MEDS: PREDNISONE 20 MG TABLET PO SCH (10:09)
[2018-04-09] MEDS: DILTIAZEM HCL 120 MG CAP.SR.24H PO SCH (10:10)
[2018-04-09] MEDS: FUROSEMIDE 40 MG TABLET PO SCH (10:10)
[2018-04-09] MEDS: SITAGLIPTIN PHOSPHATE 25 MG TABLET PO SCH (10:11)
[2018-04-09] MEDS: NITROGLYCERIN 5 MG (0.2 MG/HR) PATCH.TD24 TD SCH (10:11)
[2018-04-09] MEDS: FLUTICASONE NASAL SPRAY 50 MCG/SPRY 120 SPRAY/16 GM NASL SCH (10:11)
[2018-04-09] MEDS: APIXABAN 2.5 MG TABLET PO SCH (10:11)
[2018-04-09] MEDS: CALCITRIOL 0.25 MCG CAPSULE PO SCH (10:12)
[2018-04-09] MEDS: INSULIN REG, HUMAN 100 UNIT/ML 3 ML VIAL (PYX) SUBCUT PRN ×2 (10:13→17:13)
[2018-04-09] MEDS: INSULIN GLARGINE,HUM.REC.ANLOG 1,000 UNIT/10 ML UNIT SUBCUT SCH (10:14)
[2018-04-09] MEDS ORDERED: SIMVASTATIN 40 MG TABLET PO ONE (16:00)
[2018-04-09 16:44] VITALS: BP 146/58
--- NOTE | 2018-04-16 10:31 | PDOC DISCHARGE SUMMARY ---
General - Admit/Disc Date/PCP Admission Date/Primary Care Provider: 04/05/18 06:26 YONATHAN CHAVEZ PA-C Discharge Date: 04/09/18 - Discharge Diagnosis (1) Acute respiratory failure with hypoxia Is this a current diagnosis for this admission?: Yes Summary: Acute respiratory failure with hypoxia secondary to COPD exacerbation and CHF exacerbation. The patient does use home oxygen when sleeping but has not required it when ambulatory. The patient admitted that she became short of breath when walking short distances; she could not walk to her mailbox without taking pauses. Provided supplemental oxygen via nasal cannula as needed to maintain oxygen saturations >89%. Nebulizer treatments as needed Steroid treatment while inpatient followed by steroid taper Incentive spirometer and flutter valve On the day of discharge, the patient was able to tolerate walking for 6 minutes (with O2) without becoming hypoxic, tachynic, or experiencing dyspnea (2) CHF (congestive heart failure) Is this a current diagnosis for this admission?: Yes Summary: Echocardiogram showed significantly elevated RV pressures. Patient states she has no history of right-sided heart disease. Has received IV furosemide for diuresis; has been transitioned to p.o. lasix. Continue antihypertensives as above. Daily aspirin and statin therapy. Cardiac diet. Daily weights and strict I&O's (3) Diabetes Is this a current diagnosis for this admission?: Yes Summary: No changes to home dose of Januvia. Lantus nightly. Managed inpatient with [facility] with Humalog for sliding scale coverage. (4) Anemia Is this a current diagnosis for this admission?: Yes Summary: Patient reports chronic anemia followed by Dr. Pineda and JELANI Clayton (nephrology). She reports that she regularly receives iron infusions. Does not know her baseline hemoglobin Initially presented to [facility] with a hemoglobin of 8.9 which is trended downward to 7.6 despite diuresis. Have started the patient on twice daily ferrous sulfate supplementation. Received 1 U PRBC for symptomatic relief of SOB, her Hgb was 8.3 the day (04/08) she was transfused...above the normal threshold of transfusion. (5) Atrial fibrillation with RVR Is this a current diagnosis for this admission?: Yes Summary: The patient presented to [facility] ED in AFIB with RVR Her rate was initially controlled with IV Lopressor Cardiology consulted Rate control was achieved with PO digoxin, diltiazem, metoprolol The patient takes renally dose Eliquis at home, this was continued while inpatient. - Additional Information Resuscitation Status: Full Code Discharge Diet: Cardiac Discharge Activity: Activity As Tolerated Prescriptions: Ferrous Sulfate [Feosol 325 mg Tablet] 325 mg PO BIDPCBS #60 tablet Furosemide [Lasix 40 mg Tablet] 40 mg PO BID #60 tablet Nitroglycerin [Nitro-Dur 5 mg (0.2 mg/Hr) Transdermal Patch] 1 each TD DAILY #30 patch.td24 Home Medications: Digoxin [Lanoxin 0.125 mg Tablet] 0.125 mg PO DAILY 03/09/13 Furosemide [Lasix] 40 mg PO DAILY 03/09/13 Levothyroxine Sodium [Synthroid 0.112 mg Tablet] 0.112 mg PO Q6AM 03/09/13 Losartan Potassium 100 mg PO DAILY 03/09/13 Simvastatin 40 mg PO QHS 03/09/13 Diltiazem HCl [Diltiazem ER] 120 mg PO QAM MDD ON EMPTY STOMACH 07/25/17 Insulin Glargine,Hum.rec.anlog [Tousharon Solostar] 46 unit SQ DAILY 07/25/17 Linagliptin [Tradjenta] 5 mg PO DAILY 07/25/17 Albuterol Sulfate [Proair HFA Inhalation Aerosol 8.5 gm MDI] 2 puff IH Q6HP PRN 04/05/18 Apixaban [Eliquis 2.5 mg Tablet] 2.5 mg PO BID 04/05/18 Calcitriol [Rocaltrol 0.25 mcg Capsule] 0.25 mcg PO DAILY 04/05/18 Clobetasol Propionate [Temovate 0.05% Cream 15 gm] 1 applic TP BIDP PRN 04/05/18 Hydroxyzine Pamoate [Vistaril 25 mg Capsule] 25 mg PO Q6HP PRN 04/05/18 Levofloxacin [Levaquin 500 mg Tablet] 500 mg PO DAILY MDD filled 1/3 for 10 day supply 04/05/18 Metoprolol Succinate [Toprol Xl 50 mg Tab.sr] 100 mg PO DAILY 04/05/18 Morphine Sulfate [Morphabond ER] 15 mg PO Q12HP PRN 04/05/18 Prednisone [Sterapred] 5 mg PO ASDIR MDD filled 1/3 for 6 day supply 04/05/18 Aspirin [Ecotrin 81 mg EC Tablet] 81 mg PO DAILY tabec 04/09/18 Ferrous Sulfate [Feosol 325 mg Tablet] 325 mg PO BIDPCBS #60 tablet 04/09/18 Furosemide [Lasix 40 mg Tablet] 40 mg PO BID #60 tablet 04/09/18 Nitroglycerin [Nitro-Dur 5 mg (0.2 mg/Hr) Transdermal Patch] 1 each TD DAILY #30 patch.td24 04/09/18 History of Present Illness History of Present Illness: DEDE RAMIREZ is a 82 year old female with an unclear past medical history of though presumed by medication regiment to include congestive heart failure, atrial fibrillation, CKD 3, oxygen dependent COPD, bronchitis and diabetes. Patient presents with 4 days of shortness of breath, rhinorrhea, sore throat and GERD. Evaluated in the emergency department 48 hours ago diagnosed with COPD exacerbation with bronchitis. She was discharged home but continued to worsen prompting reevaluation the emergency room where she is found to have A. fib with RVR, hypertensive urgency of 207/114, hyperkalemia, and cardiomegaly with pulmonary vascular congestion. She receives several nebulizer treatments, placed on BiPAP and referred to the hospitalist for admission. Patient is awake and alert on BiPAP but remains short of breath verifying the above. He denies chest pain nausea vomiting Hospital Course Hospital Course: The patient is an 82-year-old female with a past medical history of atrial fibrillation, hypertension, COPD, CHF, and DM2 who was admitted 04/05/18 for acute hypoxic respiratory failure secondary to COPD and CHF exacerbations. The patient's treatment plan is outlined above. Patient was found to have severe pulmonary hypertension by echo with an RSVP of 145-[address] Skinner initially recommended transfer to [facility] for workup. The patient and her family (especially the daughter) did not want to transfer to another hospital, they wanted to return to their home [facility] [place]. Discussed the case with the MICU attending at [facility] (Dr. Simons), he recommended obtaining a lactate level and have the patient complete a 6 minute walk test. If the patient could tolerate ambulation and her lactate was normal, she could be permitted to follow up as an outpatient with her doctor. The patient was able to ambulate (with O2) without becoming symptomatic (SOB, dyspnea, chest pain, dizziness) and she was able to maintain a normal SPO2. Additionally, her lactate was only 1.7. The patient was deemed safe for discha [facility] but was instructed to follow up with a pulmonoligist in [place] within one week of discharge. The patient and family stated understanding. For any further details regarding this patient's hospitalization, please refer to the EMR. Physical Exam Vital Signs: Temp Pulse Resp BP Pulse Ox 98.1 F 101 H 18 146/58 H 97 04/09/18 16:42 04/09/18 16:42 04/09/18 16:42 04/09/18 16:42 04/09/18 16:42 Results Laboratory Results: 04/09/18 04:07 04/09/18 04:07 04/05/18 04/05/18 04/05/18 03:05 06:35 06:35 Creatine Kinase 52 CK-MB (CK-2) 1.63 Troponin I 0.024 0.036 NT-Pro-B Natriuret Pep 6890 H 04/05/18 04/05/18 04/05/18 12:27 12:27 18:30 Creatine Kinase 56 64 CK-MB (CK-2) 1.84 Troponin I 0.019 NT-Pro-B Natriuret Pep 04/05/18 04/06/18 18:30 04:01 Creatine Kinase CK-MB (CK-2) 2.11 Troponin I 0.027 NT-Pro-B Natriuret Pep 9440 H Impressions: Chest X-Ray 04/05/18 03:06 IMPRESSION: No acute cardiopulmonary abnormality copyright 2011 [employer]- All Rights Reserved Status: Imported from PACS Qualifiers - * PATIENT BEING DISCHARGED WITH ANY OF THE FOLLOWING DIAGNOSIS: Heart Failure HF Pt being discharged on ACEI for LVEF less than 40%?: Yes HF Pt being discharged on ARBS for LVEF less than 40%?: No Reason(s) for not prescribing ARBS:: Not indicated - LVEF is 65%. Patient is already on an ACEI HF Pt with Afib discharged with Warfarin?: No Reason(s) for not prescribing Warfarin:: Not indicated - patient takes eliquis HF Pt discharged on evidence-based Beta Irene:: Yes Plan Time Spent: Greater than 30 Minutes
== END 2018-04-09 18:40 | disposition home or self-care (01) | DRG 291 ==
LOC: ER 02:56 → EH 06:26 → 3N 09:46
PROVIDERS: ADMIT Internal Medicine; ATTEND Internal Medicine
PROC: 5A09457 Assistance with Respiratory Ventilation, 24-96 Consecutive Hours, Continuous Positive Airway Pressure (ICD-10-PCS; 2018-04-05)
PROC: 30233N1 Transfusion of Nonautologous Red Blood Cells into Peripheral Vein, Percutaneous Approach (ICD-10-PCS; principal; 2018-04-08)
DX: I13.0 Hypertensive heart and chronic kidney disease with heart failure and stage 1 through stage 4 chronic kidney disease, or unspecified chronic kidney disease (principal); J96.21 Acute and chronic respiratory failure with hypoxia; I50.23 Acute on chronic systolic (congestive) heart failure; J44.1 Chronic obstructive pulmonary disease with (acute) exacerbation; I48.91 Unspecified atrial fibrillation; Z99.81 Dependence on supplemental oxygen; I16.0 Hypertensive urgency; E11.22 Type 2 diabetes mellitus with diabetic chronic kidney disease; N18.3 Chronic kidney disease, stage 3 (moderate); D63.1 Anemia in chronic kidney disease; T46.5X5A Adverse effect of other antihypertensive drugs, initial encounter; I27.20 Pulmonary hypertension, unspecified; K21.9 Gastro-esophageal reflux disease without esophagitis; E87.5 Hyperkalemia; I51.7 Cardiomegaly; M19.90 Unspecified osteoarthritis, unspecified site; Z90.49 Acquired absence of other specified parts of digestive tract; Z90.710 Acquired absence of both cervix and uterus; Z96.651 Presence of right artificial knee joint; Z87.891 Personal history of nicotine dependence; Z82.49 Family history of ischemic heart disease and other diseases of the circulatory system; Z79.4 Long term (current) use of insulin; Z79.899 Other long term (current) drug therapy; Z91.041 Radiographic dye allergy status; Z79.01 Long term (current) use of anticoagulants; Z85.038 Personal history of other malignant neoplasm of large intestine
CPT/HCPCS: 36415; 36430; 71045; 80048; 80053; 80069; 81001; 82550; 82553; 82607; 82728; 82746; 82962; 83036; 83540; 83550; 83605; 83735; 83880; 84132; 84484; 85025; 85027; 85045; 85610; 86850; 86900; 86901; 86920; 87040; 87070; 87205; 93005; 93010; 93306; 93971; 94640; 94660; 94667; 94668; 94799; 96374; 99291; J0360; J1815; J1940; J2543; J2920; J2930; J3490; J7512; J7620; P9016